=== PATIENT | male | born 1960 | race Caucasian/White ===

== ENCOUNTER 2018-02-07 00:10 | Emergency (ER) | payer BC ==
[2018-02-07 00:16] VITALS: BP 118/64
[2018-02-07] MEDS ORDERED: Lidocaine 1% 20 ML MDV ONE (00:34)
[2018-02-07] MEDS ORDERED: Diphtheria,Pertussis(Acell),Tetanus Vaccine 0.5 ML SDV IM ONE (00:43)
[2018-02-07] MEDS ORDERED: Bacitracin/Neomycin/Polymyxin B Oint 0.9 GM U/D Packet TOP ONE (01:00)
[2018-02-07] MEDS ORDERED: Bacitracin/Neomycin/Polymyxin B Oint 0.9 GM U/D Packet ONE (01:00)
--- NOTE | 2018-02-07 01:02 | EDM.PDOC ---
ED HPI GENERAL MEDICAL PROBLEM - General Chief Complaint: Lower Extremity Injury/Pain Stated Complaint: lac to R foot Time Seen by Provider: 02/07/18 00:57 Source of Information: Reports: Patient History Limitations: Reports: No Limitations - History of Present Illness INITIAL COMMENTS - FREE TEXT/NARRATIVE: Patient is a 57-year-old gentleman who presents to the emergency department this morning with a complaint of laceration to his right foot. Patient states he was mowing the lawn yesterday at 530 p.m. accidentally cut foot on sharp culvert. Denies any other injury. Onset Date: 02/06/18 Onset Time: 17:30 Duration: Hour(s): Location: Reports: Lower Extremity, Right Severity: Mild Improves with: Reports: None Worsens with: Reports: None Context: Reports: Trauma Associated Symptoms: Reports: No Other Symptoms - Related Data Allergies Allergy/AdvReac Type Severity Reaction Status Date / Time codeine Allergy Vomiting Verified 02/07/18 00:13 Home Meds: Home Meds Sertraline HCl [Zoloft] 50 mg PO DAILY 09/16/15 [History] busPIRone HCl [Buspirone HCl] 7.5 mg PO TID 09/16/15 [History] metFORMIN HCl [Metformin HCl ER] 500 mg PO DAILY 03/27/16 [History] Albuterol [Ventolin HFA] 1 - 2 puff INH Q4H PRN 02/07/18 [History] Cephalexin 500 mg PO TID #21 tablet 02/07/18 [Rx] Lisinopril 10 mg PO DAILY 02/07/18 [History] Phenytoin 100 cap PO BID 02/07/18 [History] Phenytoin 200 cap PO 1400 02/07/18 [History] Past Medical History Respiratory History: Reports: COPD Musculoskeletal History: Reports: Back Pain, Chronic, Fracture Neurological History: Reports: Seizure Psychiatric History: Reports: Anxiety, Depression Endocrine/Metabolic History: Reports: Diabetes, Type II - Infectious Disease History Infectious Disease History: Reports: Chicken Pox - Past Surgical History Neurological Surgical History: Reports: None Review of Systems - Review of Systems Review Of Systems: ROS reveals no pertinent complaints other than HPI. Constitutional: Reports: No Symptoms Eyes: Reports: No Symptoms Ears: Reports: No Symptoms Nose: Reports: No Symptoms Mouth/Throat: Reports: No Symptoms Respiratory: Reports: No Symptoms Cardiovascular: Reports: No Symptoms GI/Abdominal: Reports: No Symptoms Genitourinary: Reports: No Symptoms Musculoskeletal: Reports: No Symptoms Skin: Reports: Wound (two Lacerations to right foot) Neurological: Reports: No Symptoms Psychiatric: Reports: No Symptoms ED EXAM, GENERAL - Physical Exam Exam: See Below Exam Limited By: No Limitations General Appearance: Alert, WD/WN, No Apparent Distress Throat/Mouth: Normal Inspection, Normal Oropharynx, No Airway Compromise Respiratory/Chest: No Respiratory Distress Extremities: Other (two. Lacerations to right lateral foot) Neurological: Alert, Oriented, Normal Cognition Psychiatric: Normal Affect, Normal Mood Skin Exam: Warm, Dry, Normal Color, No Rash, Wound/Incision (There is a 2 cm laceration to the dorsal aspect of right foot, and a 3 cm laceration to right lateral foot) ED TRAUMA EXTREMITY PROCEDURES - Laceration/Wound Repair Right Middle Lateral Foot Appearance: Superficial, Mildly Contaminated Distal NVT: Neuro & Vascular Intact, No Tendon Injury Anesthetic Type: Local Local Anesthesia - Lidocaine (Xylocaine): 1% Plain Local Anesthetic Volume: 3cc Skin Prep: Providone-Iodine (Betadine) Closed With: Sutures Suture Size: 3-0 # of Sutures: 7 Suture Type: Nylon, Interrupted Sterile Dressing Applied: Nurse Tetanus Status Addressed: Yes Complications: No Course - Vital Signs Last Recorded V/S: Last Vital Signs Temp 97.9 F 02/07/18 00:13 Pulse 80 02/07/18 00:13 Resp 18 02/07/18 00:13 BP 118/64 02/07/18 00:13 Pulse Ox 93 L 02/07/18 00:13 - Orders/Labs/Meds Orders: Active Orders 24 hr Category Date Time Status Vaccines to be Administered [RC] PER UNIT ROUTINE Care 02/07/18 00:43 Active Meds: Medications Discontinued Medications Generic Name Dose Route Start Last Admin Trade Name Freq PRN Reason Stop Dose Admin Diphtheria/Tetanus/Acell Pertussis 0.5 ml 02/07/18 00:43 02/07/18 00:45 Adacel IM 02/07/18 00:44 0.5 ml .ONCE ONE Administration Lidocaine HCl Confirm 02/07/18 00:34 02/07/18 00:47 Xylocaine 1% Administered 02/07/18 00:35 4 ml Dose Administration 20 ml .ROUTE .STK-MED ONE Lidocaine HCl 5 ml 02/07/18 00:44 Xylocaine-Mpf 1% INFILT 02/07/18 00:45 ONETIME ONE - Re-Assessments/Exams Free Text/Narrative Re-Assessment/Exam: 02/07/18 01:03 Patient afebrile, nontoxic appearing, vital signs stable, tolerated procedure well. Patient given tetanus here and prescription for cephalexin to go. Departure - Departure Time of Disposition: 01:05 Disposition: Home, Self-Care 01 Condition: Good Clinical Impression: Laceration of foot Qualifiers: Encounter type: initial encounter Laterality: right Qualified Code(s): S91.311A - Laceration without foreign body, right foot, initial encounter - Discharge Information Instructions: Laceration Care, Adult, [id number], Stitches, Levon, or Adhesive Wound Closure, [id number] Referrals: Aylin Tellez PA-C [Primary Care Provider] - Additional Instructions: Follow-up at [facility] in 10 days for suture removal. Return to emergency department sooner if symptoms continue or worsen. - My Orders Last 24 Hours: My Active Orders 02/07/18 00:43 Vaccines to be Administered [RC] PER UNIT ROUTINE - Assessment/Plan Last 24 Hours: My Active Orders 02/07/18 00:43 Vaccines to be Administered [RC] PER UNIT ROUTINE Assessment:: Laceration repair right foot Plan: Suture removal in 10 days
== END 2018-02-07 01:18 | disposition home or self-care (01) ==
LOC: KA.ED 00:10
DX: S91.311A Laceration without foreign body, right foot, initial encounter (principal); E11.9 Type 2 diabetes mellitus without complications; F41.9 Anxiety disorder, unspecified; F32.9 Major depressive disorder, single episode, unspecified; J44.9 Chronic obstructive pulmonary disease, unspecified; Z23 Encounter for immunization; Z79.84 Long term (current) use of oral hypoglycemic drugs; Z79.899 Other long term (current) drug therapy; Z88.5 Allergy status to narcotic agent; W26.8XXA Contact with other sharp object(s), not elsewhere classified, initial encounter
CPT/HCPCS: 12002; 90471; 90715; 99283

== ENCOUNTER 2019-06-25 16:40 | Observation (INO) | payer BC ==
[2019-06-25] MEDS ORDERED: Sodium Chloride 0.9% 1,000 ML IV ONE ×2 (16:48→18:01)
--- NOTE | 2019-06-25 16:57 | EDM.PDOC ---
ED HPI GENERAL MEDICAL PROBLEM - General Chief Complaint: General Stated Complaint: BEE STINGS Time Seen by Provider: 06/25/19 16:40 Source of Information: Reports: Patient History Limitations: Reports: No Limitations - History of Present Illness INITIAL COMMENTS - FREE TEXT/NARRATIVE: 59 YO WM with PMH of hypertension, NIDDM, seizure disorder and alcohol use/ abuse who presents to ER with a syncopal episode after bee stings today. 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 states he's been drinking for the last 3 days (beer/tequilla) and when he came in the house he passed out. Upon arrival of ambulance pt was found to have bp 80/50's. Pt denies chest pain, headache, shortness of breath. Pt states he feels nauseated but denies vomiting. Pt denies recent illness, no fever/chills, no cough or shortness of breath. Pt is alert and oriented x 4, GCS-15. Pt reports lightheadedness with standing. Onset: Today Location: Reports: Generalized Severity: Moderate Improves with: Reports: Rest Worsens with: Reports: Movement Associated Symptoms: Reports: Nausea/Vomiting, Syncope, Weakness. Denies: Confusion, Chest Pain, Cough, cough w sputum, Fever/Chills, Headaches, Loss of Appetite, Malaise, Rash, Shortness of Breath - Related Data Allergies Allergy/AdvReac Type Severity Reaction Status Date / Time codeine Allergy Vomiting Verified 06/25/19 17:11 Home Meds: Home Meds Sertraline HCl [Zoloft] 50 mg PO DAILY 09/16/15 [History] busPIRone HCl [Buspirone HCl] 7.5 mg PO TID 09/16/15 [History] metFORMIN HCl [Metformin HCl ER] 250 mg PO DAILY 03/27/16 [History] Albuterol [Ventolin HFA] 1 - 2 puff INH Q4H PRN 02/07/18 [History] Lisinopril 10 mg PO DAILY 02/07/18 [History] Phenytoin 200 cap PO 1400 02/07/18 [History] Sertraline HCl 25 mg PO DAILY 06/25/19 [History] busPIRone HCl [Buspirone HCl] 30 mg PO DAILY 06/25/19 [History] levETIRAcetam [Keppra] 1,000 mg PO BID 06/25/19 [History] Past Medical History Cardiovascular History: Reports: Hypertension Respiratory History: Reports: COPD Musculoskeletal History: Reports: Back Pain, Chronic, Fracture Neurological History: Reports: Seizure Psychiatric History: Reports: Anxiety, Depression, PTSD Endocrine/Metabolic History: Reports: Diabetes, Type II - Infectious Disease History Infectious Disease History: Reports: Chicken Pox - Past Surgical History Neurological Surgical History: Reports: None Social & Family History - Caffeine Use Caffeine Use: Reports: Coffee Other Caffeine Use: Drinks 1 pot of coffee per day ED ROS GENERAL - Review of Systems Review Of Systems: See Below Constitutional: Reports: Weakness HEENT: Reports: No Symptoms. Denies: Vision Change Respiratory: Reports: No Symptoms Cardiovascular: Reports: Blood Pressure Problem, Lightheadedness, Syncope. Denies: Chest Pain, Dyspnea on Exertion Endocrine: Reports: No Symptoms GI/Abdominal: Reports: No Symptoms : Reports: No Symptoms Musculoskeletal: Reports: No Symptoms Neurological: Reports: Dizziness, Syncope, Weakness. Denies: Confusion, Headache, Numbness, Paresthesia, Tingling, Tremors, Trouble Speaking, Difficulty Walking, Change in Speech, Gait Disturbance Psychiatric: Reports: No Symptoms Hematologic/Lymphatic: Reports: No Symptoms Immunologic: Reports: No Symptoms ED EXAM, GENERAL - Physical Exam Exam: See Below Exam Limited By: No Limitations General Appearance: Alert, WD/WN, No Apparent Distress Eye Exam: Bilateral Eye: EOMI, PERRL Head: Normocephalic, Facial Swelling. No: Atraumatic, Facial Tenderness, Sinus Tenderness Neck: Normal Inspection, Supple, Non-Tender, Full Range of Motion Respiratory/Chest: No Respiratory Distress, Lungs Clear, Normal Breath Sounds, No Accessory Muscle Use, Chest Non-Tender Cardiovascular: Normal Peripheral Pulses, Regular Rate, Rhythm, No Edema, No Gallop, No JVD, No Murmur, No Rub GI/Abdominal: Normal Bowel Sounds, Soft, Non-Tender, No Organomegaly, No Distention, No Abnormal Bruit, No Mass Back Exam: Normal Inspection, Full Range of Motion, NT Extremities: Normal Inspection, Normal Range of Motion, Non-Tender, Normal Capillary Refill, No Pedal Edema Neurological: Alert, Oriented, CN II-XII Intact, Normal Cognition, Normal Gait, Normal Reflexes, No Motor/Sensory Deficits Psychiatric: Normal Affect, Normal Mood Skin Exam: Warm, Dry, Intact, Normal Color, No Rash Lymphatic: No Adenopathy EKG INTERPRETATION EKG Date: 06/25/19 Time: 16:53 Rhythm: NSR Rate (Beats/Min): 81 [place]: Normal P-Wave: Present QRS: Normal ST-T: Normal QT: Normal Comparison: NA - No Prior EKG Course - Orders/Labs/Meds Orders: Active Orders 24 hr Category Date Time Status Cardiac Monitoring [RC] . DIRECTED Care 06/25/19 16:46 Ordered EKG Documentation Completion [RC] ASDIRECTED Care 06/25/19 16:47 Ordered Peripheral IV Care [RC] . DIRECTED Care 06/25/19 16:46 Ordered Chest 1V Frontal [CR] Stat Exams 06/25/19 16:46 Ordered Head wo Cont [CT] Stat Exams 06/25/19 16:53 Ordered CK W CKMB [CHEM] Stat Lab 06/25/19 16:46 Ordered COMPREHENSIVE METABOLIC PN,CMP [CHEM] Stat Lab 06/25/19 16:46 Ordered ETHANOL BLOOD MEDICAL [CHEM] Stat Lab 06/25/19 16:46 Ordered TROPONIN I [CHEM] Stat Lab 06/25/19 16:46 Ordered Sodium Chloride 0.9% @ 999 MLS/HR (1000ml) Med 06/25/19 16:48 Ordered Sodium Chloride 0.9% [Normal Saline] 1,000 ml IV .BOLUS EKG 12 Lead [EK] Routine Ther 06/25/19 16:46 Ordered Medication Orders Sodium Chloride (Normal Saline) 1,000 mls @ 999 mls/hr IV .BOLUS ONE Stop: 06/25/19 17:48 Labs: Laboratory Tests 06/25/19 Range/Units 16:45 WBC 8.97 (5.00-10.00) 10^3/uL RBC 3.86 L (4.50-6.00) 10^6/uL Hgb 13.4 (13.0-17.0) g/dL Hct 39.1 L (40.0-52.0) % MCV 101.3 H D (82.0-92.0) fL MCH 34.7 H (27.0-31.0) pg MCHC 34.3 (32.0-36.0) g/dL RDW 12.4 (11.5-14.5) % Plt Count 345 (150-400) 10^3/uL MPV 9.1 (7.4-10.4) fL Immature Gran % (Auto) 0.9 (0.0-5.0) % Neut % (Auto) 71.8 H (50.0-70.0) % Lymph % (Auto) 20.6 (20.0-40.0) % [place] % (Auto) 5.5 (2.0-8.0) % Eos % (Auto) 1.1 (1.0-3.0) % Baso % (Auto) 0.1 (0.0-1.0) % Immature Gran # (Auto) 0.08 (0.00-0.50) 10^3/uL Neut # (Auto) 6.44 (2.50-7.00) 10^3/uL Lymph # (Auto) 1.85 (1.00-4.00) 10^3/uL [place] # (Auto) 0.49 (0.10-0.80) 10^3/uL Eos # (Auto) 0.10 (0.10-0.30) 10^3/uL Baso # (Auto) 0.01 (0.00-0.10) 10^3/uL Meds: Medications Generic Name Dose Route Start Last Admin Trade Name Freq PRN Reason Stop Dose Admin Sodium Chloride 1,000 mls @ 999 mls/hr 06/25/19 16:48 Normal Saline IV 06/25/19 17:48 .BOLUS ONE - Radiology Interpretation Free Text/Narrative:: CXR- NAD CT Head- left orbital fracture without EOM entrapment Departure - Departure Time of Disposition: 18:00 Disposition: Refer to Observation Condition: Fair Clinical Impression: Orthostatic hypotension, Elevated troponin I level Syncope Qualifiers: Encounter type: initial encounter Orbital fracture Qualifiers: Encounter type: initial encounter Fracture type: closed Qualified Code(s): S02.85XA - Fracture of orbit, unspecified, initial encounter for closed fracture - Discharge Information Referrals: Aylin Tellez PA-C [Primary Care Provider] - Forms: ED Department Discharge - My Orders Last 24 Hours: My Active Orders 06/25/19 16:46 Cardiac Monitoring [RC] . DIRECTED Peripheral IV Care [RC] . DIRECTED Chest 1V Frontal [CR] Stat CK W CKMB [CHEM] Stat COMPREHENSIVE METABOLIC PN,CMP [CHEM] Stat ETHANOL BLOOD MEDICAL [CHEM] Stat TROPONIN I [CHEM] Stat EKG 12 Lead [EK] Routine 06/25/19 16:47 EKG Documentation Completion [RC] ASDIRECTED 06/25/19 16:48 Sodium Chloride 0.9% @ 999 MLS/HR (1000ml) Sodium Chloride 0.9% [Normal Saline] 1,000 ml IV .BOLUS 06/25/19 16:53 Head wo Cont [CT] Stat - Assessment/Plan Last 24 Hours: My Active Orders 06/25/19 16:46 Cardiac Monitoring [RC] . DIRECTED Peripheral IV Care [RC] . DIRECTED Chest 1V Frontal [CR] Stat CK W CKMB [CHEM] Stat COMPREHENSIVE METABOLIC PN,CMP [CHEM] Stat ETHANOL BLOOD MEDICAL [CHEM] Stat TROPONIN I [CHEM] Stat EKG 12 Lead [EK] Routine 06/25/19 16:47 EKG Documentation Completion [RC] ASDIRECTED 06/25/19 16:48 Sodium Chloride 0.9% @ 999 MLS/HR (1000ml) Sodium Chloride 0.9% [Normal Saline] 1,000 ml IV .BOLUS 06/25/19 16:53 Head wo Cont [CT] Stat Assessment:: 1. Orthostatic hypotension 2. dehydration 3. ETOH intoxication 4. elevated Trop I 5. left orbital wall fracture 6. syncope Plan: 1. Admit to [facility] 2. IVF hydration 3. serial trop I 4. supportive care 5. ENT/Plastics/Maxillofacial consult as outpatient for orbital fracture
[2019-06-25 17:21] LABS: ANION GAP 25.5 mmol/L (5-15); CHLORIDE,CL 104 mmol/L (98-115); SODIUM,NA 144 mmol/L (136-145)
--- NOTE | 2019-06-25 17:31 | CR ---
[id number] RAD/RAD Chest PA or AP 1V EXAM: FRONTAL CHEST INDICATION: Hypotension. COMPARISON: February 22, 2009 radiograph. DISCUSSION: There is an irregular predominantly linear right midlung opacity thought to likely represent scarring at the site of a previous mass. Underlying chronic obstructive pulmonary disease. Normal heart size. IMPRESSION: 1. Right midlung parenchymal scarring. No acute infiltrates are identified. Damon Dorsey MD 06/25/19 [id number] Thank you for allowing us to participate in the care of your patient.
--- NOTE | 2019-06-25 17:37 | CT ---
[id number] CT/CT Head WO IV EXAM: NONCONTRAST HEAD CT INDICATION: SYNCOPE. COMPARISON: September 16, 2015. DISCUSSION: There is mild generalized atrophy. Mild multifocal white matter hypoattenuation is nonspecific, but generally ascribed to chronic small vessel ischemia. No mass effect or midline shift. No acute hemorrhage or extra-axial fluid collection. No acute territorial infarct is identified. Partially characterized acute left inferior orbital wall blowout fracture and essentially nondisplaced lateral left orbital wall fracture. Chronic fat-containing left medial orbital wall blowout fracture. There is associated soft tissue gas within and surrounding the orbit. IMPRESSION: 1. Left inferior orbital wall blowout fracture and nondisplaced lateral left orbital wall fracture. There is associated soft tissue gas within the left face. Damon Dorsey MD 06/25/19 [id number] Thank you for allowing us to participate in the care of your patient.
[2019-06-25] MEDS ORDERED: Thiamine 100 MG Tab PO ONE (19:08)
[2019-06-25] MEDS ORDERED: Acetaminophen 325 MG Tab PO PRN (19:38)
[2019-06-25] MEDS ORDERED: Ondansetron 4 MG/2 ML SDV IVPUSH PRN (19:47)
[2019-06-25] MEDS ORDERED: LORazepam 2 MG/ML SDV IVPUSH PRN (20:10)
[2019-06-25] MEDS: Sodium Chloride 0.9% 1,000 ML IV SCH (20:10)
[2019-06-25] MEDS: Nicotine 21 MG/24 Hr Patch TRDERM SCH (20:11)
[2019-06-25] MEDS ORDERED: Phenytoin 100 MG Cap.ER PO SCH (21:00)
--- NOTE | 2019-06-25 21:44 | PCM.HP.2 ---
H&P History of Present Illness - General Date of Service: 06/25/19 Admit Problem/Dx: Admission Diagnosis/Problem Admission Diagnosis/Problem Syncope Source of Information: Patient, Family, Old Records, Provider History Limitations: Reports: No Limitations, Intoxication (answers questions appropriately). Denies: Uncooperative left eye Pain Score (Numeric/FACES): 4 - Related Data Allergies/Adverse Reactions: Allergies Allergy/AdvReac Type Severity Reaction Status Date / Time codeine Allergy Vomiting Verified 06/25/19 17:11 Home Medications: Home Meds Sertraline HCl [Zoloft] 50 mg PO DAILY 09/16/15 [History] busPIRone HCl [Buspirone HCl] 20 mg PO DAILY 09/16/15 [History] metFORMIN HCl [Metformin HCl ER] 250 mg PO DAILY 03/27/16 [History] Albuterol [Ventolin HFA] 1 - 2 puff INH Q4H PRN 02/07/18 [History] Lisinopril 10 mg PO DAILY 02/07/18 [History] Phenytoin 300 cap PO BID 02/07/18 [History] Sertraline HCl 25 mg PO DAILY 06/25/19 [History] busPIRone HCl [Buspirone HCl] 30 mg PO DAILY 06/25/19 [History] levETIRAcetam [Keppra] 1,000 mg PO BID 06/25/19 [History] Past Medical History Cardiovascular History: Reports: Hypertension Respiratory History: Reports: COPD Musculoskeletal History: Reports: Back Pain, Chronic, Fracture Neurological History: Reports: Concussion, Head Trauma, Seizure Psychiatric History: Reports: Anxiety, Depression, PTSD Endocrine/Metabolic History: Reports: Diabetes, Type II - Infectious Disease History Infectious Disease History: Reports: Chicken Pox - Past Surgical History Neurological Surgical History: Reports: None Social & Family History - Family History Cardiac: Reports: CAD (father) Endocrine/Metabolic: Reports: Diabetes, type II (mother) Oncologic: Reports: Prostate (father) - Tobacco Use Smoking Status *Q: Current Every Day Smoker Years of Tobacco use: 40 Packs/Tins Daily: 2 - Caffeine Use Caffeine Use: Reports: Coffee Other Caffeine Use: Drinks 1 pot of coffee per day - Recreational Drug Use Recreational Drug Use: Yes Recreational Drug Type: Reports: Marijuana/Hashish H&P Review of Systems - Review of Systems: Review Of Systems: See Below General: Denies: Fever, Chills HEENT: Reports: Headaches Pulmonary: Denies: Shortness of Breath, Cough Cardiovascular: Reports: Lightheadedness. Denies: Chest Pain, Palpitations, Dyspnea on Exertion Gastrointestinal: Reports: Decreased Appetite, Nausea, Vomiting. Denies: Abdominal Pain, Constipation, Diarrhea Genitourinary: Reports: No Symptoms Skin: Reports: Bruising (to left side of face), Wound (left orbit) Psychiatric: Denies: Confusion, Agitation Neurological: Reports: Dizziness, Headache. Denies: Confusion Exam - Exam Exam: See Below - Vital Signs Vital Signs: Last Vital Signs Temp 98 F 06/25/19 18:15 Pulse 88 06/25/19 18:15 Resp 19 06/25/19 18:15 BP 90/63 06/25/19 18:15 Pulse Ox 97 06/25/19 19:39 Orthostatic Blood Pressure [ 75/42 Standing] Orthostatic Blood Pressure [ 93/45 Sitting] Orthostatic Blood Pressure [ 98/24 Supine] Weight: 164 lb 8 oz - Exam Quality Assessment: No: Supplemental Oxygen, DVT Prophylaxis, Skin Breakdown General: Alert, Oriented (x3), Cooperative HEENT: EOMI, Hearing Intact, Nares Patent, Other (Large ecchymotic area over left orbit with moderate to severe edema; mild deviation of nose to the right with bleeding of left nare), PERRLA Lungs: Normal Respiratory Effort, Decreased Breath Sounds (to bilateral lower lobes), Wheezing (expiratory wheezes to BUL) Cardiovascular: Regular Rate, Regular Rhythm, Normal S1, Normal S2 Skin: Warm, Dry, Intact, Ecchymosis (see above), Wound (see above) Neurological: Strength Equal Bilateral (to BUE & BLE), Normal Gait, Normal Speech, Sensation Intact Neuro Extensive - Mental Status: Alert, Oriented x3, Memory Intact Psychiatric: Alert, Normal Affect, Normal Mood - Patient Data Lab Results Last 24 hrs: Laboratory Results - last 24 hr 06/25/19 06/25/19 06/25/19 Range/Units 16:45 16:45 16:45 WBC 8.97 (5.00-10.00) 10^3/uL RBC 3.86 L (4.50-6.00) 10^6/uL Hgb 13.4 (13.0-17.0) g/dL Hct 39.1 L (40.0-52.0) % MCV 101.3 H D (82.0-92.0) fL MCH 34.7 H (27.0-31.0) pg MCHC 34.3 (32.0-36.0) g/dL RDW 12.4 (11.5-14.5) % Plt Count 345 (150-400) 10^3/uL MPV 9.1 (7.4-10.4) fL Immature Gran % (Auto) 0.9 (0.0-5.0) % Neut % (Auto) 71.8 H (50.0-70.0) % Lymph % (Auto) 20.6 (20.0-40.0) % [place] % (Auto) 5.5 (2.0-8.0) % Eos % (Auto) 1.1 (1.0-3.0) % Baso % (Auto) 0.1 (0.0-1.0) % Immature Gran # (Auto) 0.08 (0.00-0.50) 10^3/uL Neut # (Auto) 6.44 (2.50-7.00) 10^3/uL Lymph # (Auto) 1.85 (1.00-4.00) 10^3/uL [place] # (Auto) 0.49 (0.10-0.80) 10^3/uL Eos # (Auto) 0.10 (0.10-0.30) 10^3/uL Baso # (Auto) 0.01 (0.00-0.10) 10^3/uL Sodium 144 (136-145) mmol/L Potassium 3.5 (3.3-5.3) mmol/L Chloride 104 (98-115) mmol/L Carbon Dioxide 18.0 L D (21.0-32.0) mmol/L Anion Gap 25.5 H (5-15) mmol/L BUN 14 (6-25) mg/dL Creatinine 0.96 (0.51-1.17) mg/dL Est Cr Clr Drug Dosing 84.90 mL/min Estimated GFR (MDRD) > 60 mL/min Glucose 99 (75 - 99) mg/dL Calcium 8.9 (8.7-10.3) mg/dL Magnesium 1.8 (1.8-2.4) mg/dL Total Bilirubin 0.2 (0.2-1.0) mg/dL AST 25 (15-37) U/L ALT 22 (12-78) U/L Alkaline Phosphatase 73 (46-116) IU/L Creatine Kinase 109 (26-276) U/L CK-MB (CK-2) 1.90 (0.00-4.30) ng/mL Troponin I 0.10 H* (0.00-0.070) ng/mL Total Protein 6.4 (6.4-8.2) g/dL Albumin 3.69 (3.00-4.80) g/dL Ethyl Alcohol 193 H* (NONE DETECTED) mg/dL 06/25/19 Range/Units 20:02 WBC (5.00-10.00) 10^3/uL RBC (4.50-6.00) 10^6/uL Hgb (13.0-17.0) g/dL Hct (40.0-52.0) % MCV (82.0-92.0) fL MCH (27.0-31.0) pg MCHC (32.0-36.0) g/dL RDW (11.5-14.5) % Plt Count (150-400) 10^3/uL MPV (7.4-10.4) fL Immature Gran % (Auto) (0.0-5.0) % Neut % (Auto) (50.0-70.0) % Lymph % (Auto) (20.0-40.0) % [place] % (Auto) (2.0-8.0) % Eos % (Auto) (1.0-3.0) % Baso % (Auto) (0.0-1.0) % Immature Gran # (Auto) (0.00-0.50) 10^3/uL Neut # (Auto) (2.50-7.00) 10^3/uL Lymph # (Auto) (1.00-4.00) 10^3/uL [place] # (Auto) (0.10-0.80) 10^3/uL Eos # (Auto) (0.10-0.30) 10^3/uL Baso # (Auto) (0.00-0.10) 10^3/uL Sodium (136-145) mmol/L Potassium (3.3-5.3) mmol/L Chloride (98-115) mmol/L Carbon Dioxide (21.0-32.0) mmol/L Anion Gap (5-15) mmol/L BUN (6-25) mg/dL Creatinine (0.51-1.17) mg/dL Est Cr Clr Drug Dosing mL/min Estimated GFR (MDRD) mL/min Glucose (75 - 99) mg/dL Calcium (8.7-10.3) mg/dL Magnesium (1.8-2.4) mg/dL Total Bilirubin (0.2-1.0) mg/dL AST (15-37) U/L ALT (12-78) U/L Alkaline Phosphatase (46-116) IU/L Creatine Kinase (26-276) U/L CK-MB (CK-2) (0.00-4.30) ng/mL Troponin I 0.11 H* (0.00-0.070) ng/mL Total Protein (6.4-8.2) g/dL Albumin (3.00-4.80) g/dL Ethyl Alcohol (NONE DETECTED) mg/dL Result Diagrams: 06/25/19 16:45 06/25/19 16:45 EKG INTERPRETATION EKG Date: 06/25/19 Time: 16:53 Rhythm: NSR Rate (Beats/Min): 81 [place]: Normal P-Wave: Present QRS: Normal ST-T: Normal QT: Normal Comparison: Change From Previous EKG (no sinus arrythmia or PVCs as noted on EKG 2015) Problem List Initiated/Reviewed/Updated: Yes Orders Last 24hrs: Active Orders 24 hr Category Date Time Status Patient Status Manage Transfer [TRANSFER] Routine ADT 06/25/19 18:02 Ordered Patient Status [ADT] Routine ADT 06/25/19 19:39 Active Cardiac Monitoring [RC] 0300,0700,1100,1500,1900,2300 Care 06/25/19 16:46 Active Intake and Output [RC] 1400,2200,0600 Care 06/25/19 19:40 Active Orthostatic Vital Signs [RC] ASDIRECTED Care 06/25/19 17:47 Active Oxygen Therapy [RC] PRN Care 06/25/19 19:39 Active Up With Assistance [RC] ASDIRECTED Care 06/25/19 19:38 Active VTE/DVT Education [RC] PER UNIT ROUTINE Care 06/25/19 19:39 Active Vital Signs [RC] 0300,0700,1100,1500,1900,2300 Care 06/25/19 19:39 Active Consult to Case Management/Roller Skater [CONS] Cons 06/25/19 19:48 Active Routine Regular Diet [DIET] Diet 06/25/19 Dinner Active BASIC METABOLIC PANEL,BMP [CHEM] AM Lab 06/26/19 05:11 Ordered CBC WITH AUTO DIFF [HEME] AM Lab 06/26/19 05:11 Ordered TROPONIN I [CHEM] AM Lab 06/26/19 05:11 Ordered TROPONIN I [CHEM] Routine Lab 06/26/19 02:00 Ordered Acetaminophen [Tylenol] Med 06/25/19 19:38 Active 650 mg PO Q4H PRN Albuterol [Ventolin HFA] Med 06/25/19 19:48 Active 0 gm INH Q4H PRN LORazepam [Ativan] Med 06/25/19 20:10 Active 5 mg IVPUSH ONETIME PRN Nicotine [Habitrol] Med 06/25/19 19:45 Active 21 mg TRDERM DAILY Ondansetron [Zofran] Med 06/25/19 19:47 Active 4 mg IVPUSH Q6H PRN Phenytoin Med 06/25/19 21:00 Hold 300 mg PO BID Sodium Chloride 0.9% [Normal Saline] 1,000 ml Med 06/25/19 19:45 Active IV ASDIRECTED levETIRAcetam [Keppra] Med 06/25/19 22:00 Active 1,000 mg PO BID@1000,2200 Seizure Precautions [OM.PC] Routine Oth 06/25/19 19:07 Ordered Resuscitation Status Routine Resus Stat 06/25/19 19:38 Ordered EKG 12 Lead [EK] Routine Ther 06/25/19 16:46 Ordered Medication Orders Acetaminophen (Tylenol) 650 mg PO Q4H PRN PRN Reason: Pain (Mild 1-3)/fever Albuterol (Ventolin Hfa) 0 gm INH Q4H PRN PRN Reason: Shortness of Breath Sodium Chloride (Normal Saline) 1,000 mls @ 100 mls/hr IV ASDIRECTED [facility] Last Admin: 06/25/19 20:10 Dose: 100 mls/hr Levetiracetam (Keppra) 1,000 mg PO BID@1000,2200 RONI Lorazepam (Ativan) 5 mg IVPUSH ONETIME PRN PRN Reason: Seizures Nicotine (Habitrol) 21 mg TRDERM DAILY [facility] Last Admin: 06/25/19 20:11 Dose: 21 mg Ondansetron HCl (Zofran) 4 mg IVPUSH Q6H PRN PRN Reason: Nausea/Vomiting Last Admin: 06/25/19 21:17 Dose: 4 mg Phenytoin Sodium (Phenytoin) 300 mg PO BID [facility] Assessment/Plan Comment:: HPI: This is a 59 yo male who presented to the ED via ambulance after a syncopal episode at home. 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 They proceeded to go in the house and she noticed him leaning against the wall and then passed out and fell face forwards on the hard floor. She states he was in a pool of blood and that he had about 30 seconds of a seizure. Last true seizure was 2017. Has been on a 3 day binge of beer and tequila. Has a history of alcohol abuse for which he has gone to treatment twice with the last time in 2011. Pertinent ED work-up: WBC 8.9 with left shift Hgb 13.4 Na 144 K 3.5 Hepatic function wnl Troponin 0.10 ETOH 193 CXR-right midlung parenchymal scarring, no acute infiltrates CT head-no acute hemorrhage, left inferior orbital wall blowout fracture and nondisplaced lateral left orbital wall fracture with associated soft tissue gas within the left face EKG-NSR without ST segment changes. Orthostatic BPs positive Primary Assessment/Plan: Syncopal episode. Telemetry. Most likely related to ETOH intoxication and dehydration. Orthostatic hypotension. Dehydration. Continue IV fluids of NS at 100 mL/hr. BMP in AM. ETOH intoxication with history of alcohol dependence. Social Service consult placed. Thiamine 100 mg po x 1. Mg 1.8. Zofran IV PRN for nausea. NSTEMI. Repeat troponin 0.11. Serial troponins. Left orbital wall fracture & lateral left orbital wall fracture. Consulted with Dr. Gayle, population geneticist ENT at [facility] regarding patient. Recommended keflex for infection prophylaxis and urgent referral to ENT and ophthalmology. CBC in AM. IV rocephin 1 gm given now d/t vomiting. Bee sting of face. Unable to visualize sting site, however could be complicated by facial fractures and edema. Secondary Assessment/Plan: HTN, essential. Hold lisinopril. T2DM. Hold metformin. Depression, recurrent. Re-evaluate doses of zoloft and buspar in the AM. Anxiety. Seizure disorder. Continue keppra and phenytoin. Lorazepam PRN order given if seizures occur. On seizure precautions. Follows with neurology. History of cannabis abuse. Tobacco abuse. Nicotine patch daily. DVT prophylaxis. None at this time. Risk of bleeding high. Overall plan: Continue IV fluids overnight. One dose of IV rocephin for facial fractures. Outpatient referrals to ENT and ophthalmology placed in Epic Chart. Work excuse provided with return to work date of 06/27/19. Code Status: Full Code - Mortality Measure Prognosis:: Good
[2019-06-25] MEDS ORDERED: cefTRIAXone 1 GM Vial IVPUSH SCH (21:45)
[2019-06-25] MEDS: levETIRAcetam 500 MG Tab PO SCH (22:24)
[2019-06-26] MEDS: Albuterol 8 GM Inhaler INH PRN ×2 (01:16→06:27)
[2019-06-26] MEDS: Sodium Chloride 0.9% 1,000 ML IV SCH (06:28)
[2019-06-26 06:48] VITALS: BP 105/62; PULSE 86
[2019-06-26 08:07] LABS: ANION GAP 23.4 mmol/L (5-15); CHLORIDE,CL 101 mmol/L (98-115); SODIUM,NA 140 mmol/L (136-145)
[2019-06-26] MEDS: Nicotine 21 MG/24 Hr Patch TRDERM SCH (08:42)
[2019-06-26] MEDS ORDERED: Sertraline 50 MG Tab PO SCH ×2 (09:00)
[2019-06-26] MEDS ORDERED: busPIRone 10 MG Tab PO SCH ×2 (09:00)
--- NOTE | 2019-06-26 10:04 | PCM.DCSUM1 ---
Discharge Summary - Discharge Data Discharge Date: 06/26/19 Discharge Disposition: Home, Self-Care 01 Condition: Good - Referral to Home Health Primary Care Physician: Aylin Tellez PA-C - Patient Summary/Data Consults: Consultations 06/25/19 19:48 Consult to Case Management/Senior Resident Care Director [CONS] Routine - Patient Instructions Diet: Regular Diet as Tolerated Activity: As Tolerated, No Strenuous Activities, Rest and Relax Today Driving: Do Not Drive Showering/Bathing: May Shower Notify Provider of: Fever (101 degrees F or higher), Increased Pain, Swelling and Redness (increased from left eye), Drainage (from left eye wound) Other/Special Instructions: Keep eye wound clean and dry. You have been referred to [facility] in [place]. Their offices will contact you to make an appointment. If you do not hear from them in 24-48 hours please call the [facility] at [phone]. I have taken you off of work all week with a return to work date of 07/03/19, however this is pending specialty consultation. - Discharge Plan *PRESCRIPTION DRUG MONITORING PROGRAM REVIEWED*: Not Applicable *COPY OF PRESCRIPTION DRUG MONITORING REPORT IN PATIENT MICHELLE: Not Applicable Prescriptions/Med Rec: cephALEXin [Keflex] 500 mg PO Q12H #14 cap Home Medications: Home Meds metFORMIN HCl [Metformin ER Osmotic] 250 mg PO DAILY 03/27/16 [History] Albuterol [Ventolin HFA] 1 - 2 puff INH Q4H PRN 02/07/18 [History] Phenytoin 300 cap PO BID 02/07/18 [History] levETIRAcetam [Keppra] 1,000 mg PO BID 06/25/19 [History] Sertraline HCl [Zoloft] 150 mg PO DAILY #0 06/26/19 [Rx] busPIRone HCl [Buspirone HCl] 15 mg PO BID #0 06/26/19 [Rx] busPIRone HCl [Buspirone HCl] 20 mg PO DAILY #0 06/26/19 [Rx] cephALEXin [Keflex] 500 mg PO Q12H #14 cap 06/26/19 [Rx] Referrals: Aylin Tellez PA-C [Primary Care Provider] - 06/28/19 - Discharge Summary/Plan Comment DC Time >30 min.: Yes Discharge Summary/Plan Comment: Date of admission: 06/25/19 Date of discharge: 06/26/19 Admitting diagnosis: Primary: Syncopal episode, Orthostatic hypotension, Dehydration, ETOH intoxication, Elevated troponin, Left orbital wall fracture & left lateral orbital wall fracture, Recent bee stings of face/head Secondary: Essential HTN, T2DM, Recurrent depression, Anxiety, Seizure disorder, History of cannabis use, Tobacco abuse Final diagnosis: Primary: Syncopal episode related to dehydration/ETOH intoxication, resolved ; Orthostatic hypotension, stable; Dehydration, resolved; ETOH intoxication, resolving; Elevated troponin, non-cardiac source, resolving; Left orbital wall fracture & left lateral orbital wall fracture, stable; Recent bee stings of face /head, resolved. Secondary: Essential HTN, T2DM, Recurrent depression, Anxiety, Seizure disorder, History of cannabis use, Tobacco abuse Procedures performed: None Brief History: This is a 59 yo male who presented to the ED via ambulance after a syncopal episode at home. 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 They proceeded to go in the house and she noticed him leaning against the wall and then passed out and fell face forwards on the hard floor. She states he was in a pool of blood and that he had about 30 seconds of a seizure. Last true seizure was 2017. Has been on a 3 day binge of beer and tequila. Has a history of alcohol abuse for which he has gone to treatment twice with the last time in 2011. Pertinent ED work-up: WBC 8.9 with left shift Hgb 13.4 Na 144 K 3.5 Hepatic function wnl Troponin 0.10 ETOH 193 CXR-right midlung parenchymal scarring, no acute infiltrates CT head-no acute hemorrhage, left inferior orbital wall blowout fracture and nondisplaced lateral left orbital wall fracture with associated soft tissue gas within the left face EKG-NSR without ST segment changes. Orthostatic BPs positive Hospital Course: The patient's hospital course progressed as expected. He was given continuous IVFs with improvement in blood pressure. His blood pressure medication was held/discontinued. He was on seizure precautions. Monitored with telemetry. Serial troponins as follows 0.10, 0.11, 0.07, 0.08; however the last troponin was ordered unintentionally and patient is without symptoms. His electrolytes remained normal. Consulted with ENT regarding facial fractures for which he was given a 1 time dose of IV rocephin (d/t vomiting) and set up as an urgent outpatient referral with ENT and ophthalmology. He was given a nicotine patch while hospitalized. No withdrawal symptoms present and no seizures. Labs on discharge: Na 140 K 4.4 Creatinine 0.90 New medications at discharge: -Keflex 500 mg po BID x 7 days Changes to home medications on discharge: -Buspar 20 mg po AM, 15 mg po at noon, 15 mg po in the evening -Discontinue lisinopril. Regular home medications on discharge: -Sertraline 150 mg po daily -Keppra 1000 mg po BID -Albuterol HFA 1-2 puffs inh q4h PRN -Phenytoin 300 mg po BID -Metformin ER 250 mg po daily Condition, Treatment, & Final Disposition: The patient is in stable condition at the time of discharge. He will be discharged home with his . 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 Outpatient ENT and ophthalmology appointments pending. Considerations at follow- up would be determining need for restarting lisinopril. Discussed alcohol treatment and smoking cessation with patient for which he declined any help with at this time. - General Info Date of Service: 06/26/19 Functional Status: Reports: Tolerating Diet, Ambulating, Urinating. Denies: New Symptoms - Review of Systems General: Denies: Fever, Weakness, Fatigue, Chills HEENT: Reports: Eye Pain (left eye), Visual Changes (left eye). Denies: Headaches Pulmonary: Reports: Shortness of Breath (chronic), Cough (chronic). Denies: Sputum Cardiovascular: Denies: Chest Pain, Palpitations, Lightheadedness Gastrointestinal: Denies: Abdominal Pain, Diarrhea, Nausea, Vomiting Genitourinary: Reports: No Symptoms Neurological: Denies: Confusion, Dizziness, Headache Psychiatric: Reports: No Symptoms - Patient Data Vitals - Most Recent: Last Vital Signs Temp 96.7 F 06/26/19 06:46 Pulse 86 06/26/19 06:46 Resp 18 06/26/19 06:46 BP 105/62 06/26/19 06:46 Pulse Ox 96 11/18/19 06:46 Orthostatic Blood Pressure [ 75/42 Standing] Orthostatic Blood Pressure [ 93/45 Sitting] Orthostatic Blood Pressure [ 98/24 Supine] Weight - Most Recent: 164 lb 8 oz I&O - Last 24 hours: Intake & Output 06/25/19 06/26/19 06/26/19 22:59 06:59 14:59 Intake Total 1050 1965 Output Total 3 775 Balance 1047 1190 Lab Results - Last 24 hrs: Laboratory Results - last 24 hr 06/25/19 06/25/19 06/25/19 Range/Units 16:45 16:45 16:45 WBC 8.97 (5.00-10.00) 10^3/uL RBC 3.86 L (4.50-6.00) 10^6/uL Hgb 13.4 (13.0-17.0) g/dL Hct 39.1 L (40.0-52.0) % MCV 101.3 H D (82.0-92.0) fL MCH 34.7 H (27.0-31.0) pg MCHC 34.3 (32.0-36.0) g/dL RDW 12.4 (11.5-14.5) % Plt Count 345 (150-400) 10^3/uL MPV 9.1 (7.4-10.4) fL Immature Gran % (Auto) 0.9 (0.0-5.0) % Neut % (Auto) 71.8 H (50.0-70.0) % Lymph % (Auto) 20.6 (20.0-40.0) % Bleckley % (Auto) 5.5 (2.0-8.0) % Eos % (Auto) 1.1 (1.0-3.0) % Baso % (Auto) 0.1 (0.0-1.0) % Immature Gran # (Auto) 0.08 (0.00-0.50) 10^3/uL Neut # (Auto) 6.44 (2.50-7.00) 10^3/uL Lymph # (Auto) 1.85 (1.00-4.00) 10^3/uL Bleckley # (Auto) 0.49 (0.10-0.80) 10^3/uL Eos # (Auto) 0.10 (0.10-0.30) 10^3/uL Baso # (Auto) 0.01 (0.00-0.10) 10^3/uL Sodium 144 (136-145) mmol/L Potassium 3.5 (3.3-5.3) mmol/L Chloride 104 (98-115) mmol/L Carbon Dioxide 18.0 L D (21.0-32.0) mmol/L Anion Gap 25.5 H (5-15) mmol/L BUN 14 (6-25) mg/dL Creatinine 0.96 (0.51-1.17) mg/dL Est Cr Clr Drug Dosing 84.90 mL/min Estimated GFR (MDRD) > 60 mL/min Glucose 99 (75 - 99) mg/dL Calcium 8.9 (8.7-10.3) mg/dL Magnesium 1.8 (1.8-2.4) mg/dL Total Bilirubin 0.2 (0.2-1.0) mg/dL AST 25 (15-37) U/L ALT 22 (12-78) U/L Alkaline Phosphatase 73 (46-116) IU/L Creatine Kinase 109 (26-276) U/L CK-MB (CK-2) 1.90 (0.00-4.30) ng/mL Troponin I 0.10 H* (0.00-0.070) ng/mL Total Protein 6.4 (6.4-8.2) g/dL Albumin 3.69 (3.00-4.80) g/dL Ethyl Alcohol 193 H* (NONE DETECTED) mg/dL 06/25/19 06/26/19 06/26/19 Range/Units 20:02 03:30 07:25 WBC (5.00-10.00) 10^3/uL RBC (4.50-6.00) 10^6/uL Hgb (13.0-17.0) g/dL Hct (40.0-52.0) % MCV (82.0-92.0) fL MCH (27.0-31.0) pg MCHC (32.0-36.0) g/dL RDW (11.5-14.5) % Plt Count (150-400) 10^3/uL MPV (7.4-10.4) fL Immature Gran % (Auto) (0.0-5.0) % Neut % (Auto) (50.0-70.0) % Lymph % (Auto) (20.0-40.0) % Bleckley % (Auto) (2.0-8.0) % Eos % (Auto) (1.0-3.0) % Baso % (Auto) (0.0-1.0) % Immature Gran # (Auto) (0.00-0.50) 10^3/uL Neut # (Auto) (2.50-7.00) 10^3/uL Lymph # (Auto) (1.00-4.00) 10^3/uL Bleckley # (Auto) (0.10-0.80) 10^3/uL Eos # (Auto) (0.10-0.30) 10^3/uL Baso # (Auto) (0.00-0.10) 10^3/uL Sodium 140 (136-145) mmol/L Potassium 4.4 (3.3-5.3) mmol/L Chloride 101 (98-115) mmol/L Carbon Dioxide 20.0 L (21.0-32.0) mmol/L Anion Gap 23.4 H (5-15) mmol/L BUN 16 (6-25) mg/dL Creatinine 0.90 (0.51-1.17) mg/dL Est Cr Clr Drug Dosing 90.56 mL/min Estimated GFR (MDRD) > 60 mL/min Glucose 82 (75 - 99) mg/dL Calcium 7.8 L (8.7-10.3) mg/dL Magnesium (1.8-2.4) mg/dL Total Bilirubin (0.2-1.0) mg/dL AST (15-37) U/L ALT (12-78) U/L Alkaline Phosphatase (46-116) IU/L Creatine Kinase (26-276) U/L CK-MB (CK-2) (0.00-4.30) ng/mL Troponin I 0.11 H* 0.07 0.08 H* (0.00-0.070) ng/mL Total Protein (6.4-8.2) g/dL Albumin (3.00-4.80) g/dL Ethyl Alcohol (NONE DETECTED) mg/dL 11/18/19 Range/Units 07:25 WBC 6.85 (5.00-10.00) 10^3/uL RBC 3.16 L (4.50-6.00) 10^6/uL Hgb 11.0 L D (13.0-17.0) g/dL Hct 32.4 L (40.0-52.0) % MCV 102.5 H (82.0-92.0) fL MCH 34.8 H (27.0-31.0) pg MCHC 34.0 (32.0-36.0) g/dL RDW 12.3 (11.5-14.5) % Plt Count 253 D (150-400) 10^3/uL MPV 8.9 (7.4-10.4) fL Immature Gran % (Auto) 0.3 (0.0-5.0) % Neut % (Auto) 73.4 H (50.0-70.0) % Lymph % (Auto) 14.7 L (20.0-40.0) % Bleckley % (Auto) 11.4 H (2.0-8.0) % Eos % (Auto) 0.1 L (1.0-3.0) % Baso % (Auto) 0.1 (0.0-1.0) % Immature Gran # (Auto) 0.02 (0.00-0.50) 10^3/uL Neut # (Auto) 5.02 (2.50-7.00) 10^3/uL Lymph # (Auto) 1.01 (1.00-4.00) 10^3/uL Bleckley # (Auto) 0.78 (0.10-0.80) 10^3/uL Eos # (Auto) 0.01 L (0.10-0.30) 10^3/uL Baso # (Auto) 0.01 (0.00-0.10) 10^3/uL Sodium (136-145) mmol/L Potassium (3.3-5.3) mmol/L Chloride (98-115) mmol/L Carbon Dioxide (21.0-32.0) mmol/L Anion Gap (5-15) mmol/L BUN (6-25) mg/dL Creatinine (0.51-1.17) mg/dL Est Cr Clr Drug Dosing mL/min Estimated GFR (MDRD) mL/min Glucose (75 - 99) mg/dL Calcium (8.7-10.3) mg/dL Magnesium (1.8-2.4) mg/dL Total Bilirubin (0.2-1.0) mg/dL AST (15-37) U/L ALT (12-78) U/L Alkaline Phosphatase (46-116) IU/L Creatine Kinase (26-276) U/L CK-MB (CK-2) (0.00-4.30) ng/mL Troponin I (0.00-0.070) ng/mL Total Protein (6.4-8.2) g/dL Albumin (3.00-4.80) g/dL Ethyl Alcohol (NONE DETECTED) mg/dL Med Orders - Current: Current Medications Acetaminophen (Tylenol) 650 mg PO Q4H PRN PRN Reason: Pain (Mild 1-3)/fever Last Admin: 06/26/19 03:20 Dose: 650 mg Albuterol (Ventolin Hfa) 0 gm INH Q4H PRN PRN Reason: Shortness of Breath Last Admin: 06/26/19 06:27 Dose: 2 puff Ceftriaxone Sodium (Rocephin) 1 gm IVPUSH Q24H [facility] Last Admin: 06/25/19 23:06 Dose: 1 gm Sodium Chloride (Normal Saline) 1,000 mls @ 100 mls/hr IV ASDIRECTED [facility] Last Admin: 06/26/19 06:28 Dose: 100 mls/hr Levetiracetam (Keppra) 1,000 mg PO BID@1000,2200 [facility] Last Admin: 06/25/19 22:24 Dose: 1,000 mg Lorazepam (Ativan) 5 mg IVPUSH ONETIME PRN PRN Reason: Seizures Nicotine (Habitrol) 21 mg TRDERM DAILY [facility] Last Admin: 06/26/19 08:42 Dose: 21 mg Ondansetron HCl (Zofran) 4 mg IVPUSH Q6H PRN PRN Reason: Nausea/Vomiting Last Admin: 06/25/19 21:17 Dose: 4 mg Phenytoin Sodium (Phenytoin) 300 mg PO BID [facility] Discontinued Medications Buspirone HCl (Buspar) 20 mg PO DAILY [facility] Buspirone HCl (Buspar) 30 mg PO DAILY [facility] Sodium Chloride (Normal Saline) 1,000 mls @ 999 mls/hr IV .BOLUS ONE Stop: 06/25/19 17:48 Last Admin: 06/25/19 16:50 Dose: 999 mls/hr Sodium Chloride (Normal Saline) 1,000 mls @ 999 mls/hr IV .BOLUS ONE Stop: 06/25/19 19:01 Last Admin: 06/25/19 18:18 Dose: 999 mls/hr Sertraline HCl (Zoloft) 50 mg PO DAILY [facility] Sertraline HCl (Zoloft) 25 mg PO DAILY [facility] Thiamine HCl (Vitamin B-1) 100 mg PO ONETIME ONE Stop: 06/25/19 19:09 Last Admin: 06/25/19 20:13 Dose: 100 mg - Exam Quality Assessment: Denies: Supplemental Oxygen, DVT Prophylaxis General: Reports: Alert, Oriented, Cooperative, No Acute Distress HEENT: Reports: Pupils Equal, Pupils Reactive, EOMI Lungs: Reports: Normal Respiratory Effort, Decreased Breath Sounds (throughout lung blankenship) Cardiovascular: Reports: Regular Rate (90 bpm apical), Regular Rhythm, No Murmurs Skin: Reports: Warm, Dry, Other (left eye/orbit: severe edema and ecchymosis of left eye limiting vision, no open wound or surrounding erythema) Neurological: Reports: Normal Speech, Normal Tone Psy/Mental Status: Reports: Alert, Normal Affect, Normal Mood. Denies: Withdrawal Symptoms
[2019-06-26] MEDS: levETIRAcetam 500 MG Tab PO SCH (10:57)
== END 2019-06-26 12:10 | disposition home or self-care (01) ==
LOC: KA.ED 16:40 → KA.MS 18:02
PROVIDERS: ADMIT Nurse Practitioner Family; ATTEND Nurse Practitioner Family
DX: E86.0 Dehydration (principal); I95.1 Orthostatic hypotension; R79.89 Other specified abnormal findings of blood chemistry; S02.842A Fracture of lateral orbital wall, left side, initial encounter for closed fracture; T63.441A Toxic effect of venom of bees, accidental (unintentional), initial encounter; I10 Essential (primary) hypertension; E11.9 Type 2 diabetes mellitus without complications; G40.909 Epilepsy, unspecified, not intractable, without status epilepticus; J44.9 Chronic obstructive pulmonary disease, unspecified; F10.129 Alcohol abuse with intoxication, unspecified; F33.9 Major depressive disorder, recurrent, unspecified; F41.9 Anxiety disorder, unspecified; F17.210 Nicotine dependence, cigarettes, uncomplicated; Z88.5 Allergy status to narcotic agent; Z79.899 Other long term (current) drug therapy; Z79.84 Long term (current) use of oral hypoglycemic drugs
CPT/HCPCS: 36415; 70450; 71045; 80048; 80053; 80320; 82550; 82553; 83735; 84484; 85025; 93005; 96360; 99285; A9270; J0696; J2405; J7030; 96361; 96374; 96375; G0378; G0480

== ENCOUNTER 2020-02-05 15:22 | Emergency (ER) | payer BC, OTHER ==
--- NOTE | 2020-02-05 16:09 | EDM.PDOC ---
ED HPI GENERAL MEDICAL PROBLEM - General Chief Complaint: Abdominal Pain Stated Complaint: Right groin pain Time Seen by Provider: 02/05/20 15:53 Source of Information: Reports: Patient History Limitations: Reports: No Limitations - History of Present Illness INITIAL COMMENTS - FREE TEXT/NARRATIVE: Patient is a 59-year-old gentleman who presents to the emergency department this afternoon with a complaint of right groin pain. Patient states on Wednesday while working at [employer], he outstretched to catch something that was falling and felt a pull in his right groin. Patient states that the pain has been persistent and he thought maybe he had a hernia. Patient has history of left inguinal hernia repair at 14 years of age. However denies abdominal pain, nausea, vomiting, diarrhea, chest pain, shortness of breath, or right lower extremity pain. Onset: Sudden Onset Date: 02/03/20 Duration: Day(s): Location: Reports: Abdomen Quality: Reports: Ache Severity: Mild Improves with: Reports: None Worsens with: Reports: Movement Context: Reports: Activity Associated Symptoms: Reports: No Other Symptoms. Denies: Chest Pain, Fever/Chills, Nausea/Vomiting, Shortness of Breath - Related Data Allergies Allergy/AdvReac Type Severity Reaction Status Date / Time codeine Allergy Vomiting Verified 06/25/19 17:11 Home Meds: Home Meds metFORMIN HCl [Metformin ER Osmotic] 250 mg PO DAILY 03/27/16 [History] Albuterol [Ventolin HFA] 1 - 2 puff INH Q4H PRN 02/07/18 [History] Phenytoin 300 cap PO BID 02/07/18 [History] levETIRAcetam [Keppra] 1,000 mg PO BID 06/25/19 [History] Sertraline HCl [Zoloft] 150 mg PO DAILY #0 06/26/19 [Rx] busPIRone HCl [Buspirone HCl] 15 mg PO BID #0 06/26/19 [Rx] busPIRone HCl [Buspirone HCl] 20 mg PO DAILY #0 06/26/19 [Rx] cephALEXin [Keflex] 500 mg PO Q12H #14 cap 06/26/19 [Rx] Past Medical History Cardiovascular History: Reports: Hypertension Respiratory History: Reports: COPD Musculoskeletal History: Reports: Back Pain, Chronic, Fracture Neurological History: Reports: Concussion, Head Trauma, Seizure Psychiatric History: Reports: Anxiety, Depression, PTSD Endocrine/Metabolic History: Reports: Diabetes, Type II - Infectious Disease History Infectious Disease History: Reports: Chicken Pox - Past Surgical History Neurological Surgical History: Reports: None Social & Family History - Family History Family Medical History: Noncontributory Cardiac: Reports: CAD (father) Endocrine/Metabolic: Reports: Diabetes, type II (mother) Oncologic: Reports: Prostate (father) - Caffeine Use Caffeine Use: Reports: Coffee Other Caffeine Use: Drinks 1 pot of coffee per day ED ROS GENERAL - Review of Systems Review Of Systems: Comprehensive ROS is negative, except as noted in HPI. Constitutional: Reports: No Symptoms HEENT: Reports: No Symptoms Respiratory: Reports: No Symptoms Cardiovascular: Reports: No Symptoms Endocrine: Reports: No Symptoms GI/Abdominal: Reports: Abdominal Pain : Reports: No Symptoms Musculoskeletal: Reports: No Symptoms Skin: Reports: No Symptoms Neurological: Reports: No Symptoms Psychiatric: Reports: No Symptoms Hematologic/Lymphatic: Reports: No Symptoms Immunologic: Reports: No Symptoms ED EXAM, GI/ABD - Physical Exam Exam: See Below Exam Limited By: No Limitations General Appearance: Alert, WD/WN, No Apparent Distress Throat/Mouth: Normal Inspection, Normal Oropharynx, No Airway Compromise Head: Atraumatic, Normocephalic Neck: Normal Inspection Respiratory/Chest: No Respiratory Distress, Lungs Clear, Normal Breath Sounds, No Accessory Muscle Use, Chest Non-Tender Cardiovascular: Regular Rate, Rhythm, No Murmur GI/Abdominal Exam: Normal Bowel Sounds, Soft, No Organomegaly, No Distention, No Abnormal Bruit, No Mass, Pelvis Stable, Other (Minimally tender to palpation of right inguinal region. No edema, crepitus, ecchymosis, or erythema noted). No: Hernia (Male) Exam: No Hernia, Normal Inspection, Circumcised. No: Hernia, Rash, Scrotal Swelling, Scrotum Tenderness (L), Scrotum Tenderness (R), Testicular Mass, Testicular Tenderness (L), Testicular Tenderness (R) Back Exam: Normal Inspection. No: CVA Tenderness (L), CVA Tenderness (R) Extremities: Normal Inspection, No Pedal Edema Neurological: Alert, Oriented, Normal Cognition Psychiatric: Normal Affect, Normal Mood Skin Exam: Warm, Dry, Intact, Normal Color, No Rash Lymphatic: No Adenopathy Course - Re-Assessments/Exams Free Text/Narrative Re-Assessment/Exam: 02/05/20 16:09 Patient afebrile, vital signs stable, nontoxic appearing. No hernia appreciated on exam. Patient has groin muscle strain. Patient will follow-up with PCP Departure - Departure Time of Disposition: 16:09 Disposition: Home, Self-Care 01 Clinical Impression: Strain of muscle of right groin region - Discharge Information Instructions: Muscle Strain, [id number], How to Use Cold Therapy, [id number] Referrals: Kimberly Desir [employer] [Primary Care Provider] - Forms: ED Department Discharge Additional Instructions: Follow-up at [facility] in 2 days for recheck. Return to emergency department sooner symptoms continue or worsen. - Assessment/Plan Assessment:: Groin muscle pull Plan: Follow-up with PCP
[2020-02-05 18:31] VITALS: BP 156/85; PULSE 92
== END 2020-02-05 16:21 | disposition home or self-care (01) ==
LOC: KA.ED 15:22
DX: S39.011A Strain of muscle, fascia and tendon of abdomen, initial encounter (principal); I10 Essential (primary) hypertension; J44.9 Chronic obstructive pulmonary disease, unspecified; F41.9 Anxiety disorder, unspecified; F32.9 Major depressive disorder, single episode, unspecified; E11.9 Type 2 diabetes mellitus without complications; R56.9 Unspecified convulsions; Z79.84 Long term (current) use of oral hypoglycemic drugs; Z79.899 Other long term (current) drug therapy; Z88.5 Allergy status to narcotic agent; W18.30XA Fall on same level, unspecified, initial encounter
CPT/HCPCS: 99283

== ENCOUNTER 2020-12-04 16:54 | Emergency (ER) | payer BC ==
--- NOTE | 2020-12-04 17:15 | EDM.PDOC ---
ED HPI GENERAL MEDICAL PROBLEM - General Chief Complaint: Neurological Problem Stated Complaint: SIEZURE AT WORK TODAY Time Seen by Provider: 12/04/20 17:15 Source of Information: Reports: Patient - History of Present Illness INITIAL COMMENTS - FREE TEXT/NARRATIVE: Mark, 60-year-old male, presents accompanied with his after he had seizure activity at work today. He has a known seizure disorder. He states he felt this coming on and was able to set himself onto the floor avoiding any injury. States it was typical of his history but is been nearly 2 years since his last seizure activity. He feels electric type shock "Being tased", and a metallic taste in his mouth. He was evaluated at work and found to be hypertensive at that time and recommendation for emergency department assessment were given. He presents per pedis with no distress, no imbalance, stating he feels fine at this time. Denies any chest pain shortness of breath other than his chronic COPD issues as he is continuing to smoke roughly 1/2 pack/day. States there is significant stress at work. Onset: Today Duration: Minutes:, Resolved Prior to Arrival Location: Reports: Head Severity: Mild Associated Symptoms: Reports: No Other Symptoms - Related Data Allergies Allergy/AdvReac Type Severity Reaction Status Date / Time codeine Allergy Vomiting Verified 12/04/20 17:04 Home Meds: Home Meds metFORMIN HCl [Metformin ER Osmotic] 250 mg PO DAILY 03/27/16 [History] Albuterol [Ventolin HFA] 1 - 2 puff INH Q4H PRN 02/07/18 [History] Phenytoin 300 cap PO BID 02/07/18 [History] levETIRAcetam [Keppra] 1,000 mg PO BID 06/25/19 [History] Sertraline HCl [Zoloft] 150 mg PO DAILY #0 06/26/19 [Rx] busPIRone HCl [Buspirone HCl] 15 mg PO DAILY 12/04/20 [History] Past Medical History Cardiovascular History: Reports: Hypertension Respiratory History: Reports: COPD Musculoskeletal History: Reports: Back Pain, Chronic, Fracture Neurological History: Reports: Concussion, Head Trauma, Seizure Psychiatric History: Reports: Anxiety, Depression, PTSD Endocrine/Metabolic History: Reports: Diabetes, Type II - Infectious Disease History Infectious Disease History: Reports: Chicken Pox - Past Surgical History GI Surgical History: Reports: Hernia, Inguinal Neurological Surgical History: Reports: None Social & Family History - Family History Family Medical History: No Pertinent Family History Cardiac: Reports: CAD Endocrine/Metabolic: Reports: Diabetes, type II Oncologic: Reports: Prostate - Tobacco Use Tobacco Use Status *Q: Current Every Day Tobacco User Used Tobacco, but Quit: No Smoking Cessation Information Provided To Patient: Patient Refused - Caffeine Use Caffeine Use: Reports: Coffee Other Caffeine Use: Drinks 1 pot of coffee per day - Alcohol Use Alcohol Use History: Yes Days Per Week of Alcohol Use: 7 Number of Drinks Per Day: 3 Total Drinks Per Week: 21 Alcohol Use in Last Twelve Months: Yes Alcohol Use Frequency: Daily ED ROS GENERAL - Review of Systems Review Of Systems: Comprehensive ROS is negative, except as noted in HPI. ED EXAM, GENERAL - Physical Exam Exam: See Below Free Text/Narrative:: Alert, oriented, in no acute distress. There is a no evidence of cyanosis nor pallor with pink moist mucous membranes. HEENT is negative to discharge or deformity. There is no tenderness the cervical chain nor paraspinal muscles. Thorax is overall clear raspy of what I attribute to his smoking with no wheezes nor crackles noted. Cardiac is S1-S2 with no appreciated murmur. 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 Denies any injury aches or pains from this small seizure that is his typical pattern, although it is been 2 years since his last seizure activity. States he is scheduled for neurology recheck which he has every 6 months, in the upcoming 3 weeks. Course - Vital Signs Last Recorded V/S: Last Vital Signs Temp 97.9 F 12/04/20 17:00 Pulse 84 12/04/20 17:00 Resp 16 12/04/20 17:00 BP 133/78 12/04/20 17:00 Pulse Ox 97 12/04/20 17:00 - Orders/Labs/Meds Orders: Active Orders 24 hr Category Date Time Status COMPREHENSIVE METABOLIC PN,CMP [CHEM] Stat Lab 12/04/20 17:24 Ordered LEVETIRACETAM, S [REF] Routine Lab 12/04/20 17:27 Ordered PHENYTOIN [REF] Stat Lab 12/04/20 17:26 Ordered Labs: Laboratory Tests 12/04/20 Range/Units 17:35 WBC 4.50 L (5.00-10.00) 10^3/uL RBC 3.77 L (4.50-6.00) 10^6/uL Hgb 12.5 L D (13.0-17.0) g/dL Hct 36.8 L (40.0-52.0) % MCV 97.6 H D (82.0-92.0) fL MCH 33.2 H (27.0-31.0) pg MCHC 34.0 (32.0-36.0) g/dL RDW 12.8 (11.5-14.5) % Plt Count 271 (150-400) 10^3/uL MPV 9.1 (7.4-10.4) fL Immature Gran % (Auto) 0.0 (0.0-5.0) % Neut % (Auto) 63.7 (50.0-70.0) % Lymph % (Auto) 22.2 (20.0-40.0) % Traill % (Auto) 9.8 H (2.0-8.0) % Eos % (Auto) 3.6 H (1.0-3.0) % Baso % (Auto) 0.7 (0.0-1.0) % Neut # (Auto) 2.87 (2.50-7.00) 10^3/uL Lymph # (Auto) 1.00 (1.00-4.00) 10^3/uL Traill # (Auto) 0.44 (0.10-0.80) 10^3/uL Eos # (Auto) 0.16 (0.10-0.30) 10^3/uL Baso # (Auto) 0.03 (0.00-0.10) 10^3/uL Immature Gran # (Auto) 0.00 (0.00-0.50) 10^3/uL Departure - Departure Time of Disposition: 18:21 Disposition: Home, Self-Care 01 Condition: Good Clinical Impression: Seizure disorder, Anemia - Discharge Information *PRESCRIPTION DRUG MONITORING PROGRAM REVIEWED*: Not Applicable *COPY OF PRESCRIPTION DRUG MONITORING REPORT IN PATIENT MICHELLE: Not Applicable Referrals: Aylin Tellez PA-C [Primary Care Provider] - Forms: ED Department Discharge Additional Instructions: Your lab values returned showing your chronic anemia is similar to your last reading. You should discuss this with your provider when you are there for your appointment next week. Your potassium is slightly elevated, this is likely due to the amount of bananas urinating as well as the potassium supplement drinks such as Gatorade or Powerade. Please cut back to 1 banana a day most until you have your potassium rechecked next week. Your kidney function appears within normal limits at this time reflecting good hydration status. The Keppra and phenytoin levels will return over the weekend be available for you for your appointment with neurology next week. Continue your medications as directed and follow-up with your appointment for next week. [facility] illness form completed. Sepsis Event Note (ED) - Focused Exam Vital Signs: Vital Signs Temp Pulse Resp BP Pulse Ox 12/04/20 17:00 97.9 F 84 16 133/78 97 - Problem List & Annotations (1) Seizure disorder SNOMED Code(s): 932287734 Code(s): G40.909 - EPILEPSY, UNSP, NOT INTRACTABLE, WITHOUT STATUS EPILEPTICUS Status: Chronic Priority: Medium Current Visit: Yes (2) Anemia SNOMED Code(s): 996160781 Code(s): D64.9 - ANEMIA, UNSPECIFIED Status: Chronic Priority: Medium Current Visit: Yes Qualifiers: Anemia type: unspecified type Qualified Code(s): D64.9 - Anemia, unspecified (3) COPD not affecting current episode of care SNOMED Code(s): 66403739 Code(s): J44.9 - CHRONIC OBSTRUCTIVE PULMONARY DISEASE, UNSPECIFIED Status: Chronic Priority: Medium Current Visit: Yes - Problem List Review Problem List Initiated/Reviewed/Updated: Yes - My Orders Last 24 Hours: My Active Orders 12/04/20 17:24 COMPREHENSIVE METABOLIC PN,CMP [CHEM] Stat 12/04/20 17:26 PHENYTOIN [REF] Stat 12/04/20 17:27 LEVETIRACETAM, S [REF] Routine - Assessment/Plan Last 24 Hours: My Active Orders 12/04/20 17:24 COMPREHENSIVE METABOLIC PN,CMP [CHEM] Stat 12/04/20 17:26 PHENYTOIN [REF] Stat 12/04/20 17:27 LEVETIRACETAM, S [REF] Routine Plan: Your lab values returned showing your chronic anemia is similar to your last reading. You should discuss this with your provider when you are there for your appointment next week. Your potassium is slightly elevated, this is likely due to the amount of bananas urinating as well as the potassium supplement drinks such as Gatorade or Powerade. Please cut back to 1 banana a day most until you have your potassium rechecked next week. Your kidney function appears within normal limits at this time reflecting good hydration status. The Keppra and phenytoin levels will return over the weekend be available for you for your appointment with neurology next week. Continue your medications as directed and follow-up with your appointment for next week. [facility] illness form completed.
[2020-12-04 17:34] VITALS: BP 133/78; PULSE 84
[2020-12-04 18:05] LABS: ANION GAP 14.1 mmol/L (5-15); CHLORIDE,CL 104 mmol/L (98-107); SODIUM,NA 139 mmol/L (136-145)
== END 2020-12-04 18:30 | disposition home or self-care (01) ==
LOC: KA.ED 16:54
DX: G40.909 Epilepsy, unspecified, not intractable, without status epilepticus (principal); D64.9 Anemia, unspecified; E87.5 Hyperkalemia; I10 Essential (primary) hypertension; J44.9 Chronic obstructive pulmonary disease, unspecified; E11.9 Type 2 diabetes mellitus without complications; Z72.0 Tobacco use; Z88.5 Allergy status to narcotic agent; Z79.84 Long term (current) use of oral hypoglycemic drugs; Z79.899 Other long term (current) drug therapy
CPT/HCPCS: 36415; 80053; 80177; 80185; 85025; 99284

== ENCOUNTER 2023-03-16 13:01 | Emergency (ER) | payer BC ==
[2023-03-16] MEDS ORDERED: Sodium Chloride 0.9% 10 ML Syringe FLUSH PRN (13:11)
[2023-03-16 13:21] LABS: BASOPHILS ABSOLUTE AUTO 0.02 10^3/uL (0.00-0.10); BASOPHILS PERCENT AUTO 0.4 % (0.0-1.0); EOSINOPHILS ABSOLUTE AUTO 0.01 10^3/uL (0.10-0.30); EOSINOPHILS PERCENT AUTO 0.2 % (1.0-3.0); HEMOGLOBIN 12.2 g/dL (13.0-17.0); IMMATURE GRAN ABSOLUTE AUTO 0.01 10^3/uL (0.00-0.50); IMMATURE GRAN PERCENT AUTO 0.2 % (0.0-5.0); LYMPHOCYTES ABSOLUTE AUTO 0.87 10^3/uL (1.00-4.00); LYMPHOCYTES PERCENT AUTO 15.4 % (20.0-40.0); MEAN CORPUSCULAR HEMOGLOBIN 35.7 pg (27.0-31.0); MEAN CORPUSCULAR HGB CONC 35.9 g/dL (32.0-36.0); MEAN CORPUSCULAR VOLUME 99.4 fL (82.0-92.0); MEAN PLATELET VOLUME 8.7 fL (7.4-10.4); MONOCYTES PERCENT AUTO 10.6 % (2.0-8.0); NEUTROPHILS ABSOLUTE AUTO 4.15 10^3/uL (2.50-7.00); NEUTROPHILS PERCENT AUTO 73.2 % (50.0-70.0); PLATELET COUNT,PLT 281 10^3/uL (150-400); RED BLOOD CELL COUNT 3.42 10^6/uL (4.50-6.00); RED CELL DISTRIBUTION WIDTH 11.5 % (11.5-14.5); WHITE BLOOD CELL COUNT,WBC 5.66 10^3/uL (5.00-10.00)
[2023-03-16] MEDS: levETIRAcetam in NaCl (iso-os) 1,000 MG in Premix Bag 1 BAG IV ONE ×2 (13:27)
[2023-03-16] MEDS: Sodium Chloride 0.9% 50 ML IV SCH (13:29)
[2023-03-16] MEDS: Sodium Chloride 0.9% 50 ML ONE (13:34)
[2023-03-16 13:36] LABS: ALANINE AMINOTRANSFERASE,ALT 35 U/L (14-63); ALBUMIN 3.91 g/dL (3.40-5.00); ALKALINE PHOSPHATASE 106 U/L (46-116); ANION GAP 16.3 mmol/L (5-15); ASPARTATE AMNIOTRANSFERASE,AST 44 U/L (15-37); BILIRUBIN TOTAL 0.6 mg/dL (0.2-1.0); BLOOD UREA NITROGEN,BUN 17 mg/dL (7-18); CALCIUM 8.8 mg/dL (8.7-10.3); CARBON DIOXIDE,CO2 25.5 mmol/L (21.0-32.0); CHLORIDE,CL 91 mmol/L (98-107); CREATININE 0.86 mg/dL (0.51-1.17); EST CRCL DRUG DOSING (CG) 91.34 mL/min; GLUCOSE RANDOM 156 mg/dL (70-140); POTASSIUM,K 5.8 mmol/L (3.5-5.1); PROTEIN TOTAL,TP 6.6 g/dL (6.4-8.2); SODIUM,NA 127 mmol/L (136-145)
[2023-03-16 13:37] LABS: C-REACTIVE PROTEIN < 0.4 mg/dL (0.0-0.9); ESTIMATED GFR 99 mL/min (>=60)
[2023-03-16] MEDS: Ondansetron 4 MG/2 ML SDV IVPUSH ONE (14:08)
[2023-03-16] MEDS: Ondansetron 4 MG/2 ML SDV ONE (14:11)
[2023-03-16] MEDS: Phenytoin 250 MG in Sodium Chloride 0.9% 100 ML IV ONE ×2 (14:22→14:29)
[2023-03-16] MEDS: Sodium Chloride 0.9% 1,000 ML IV ONE (14:28)
[2023-03-16 15:58] VITALS: BP 127/75; PULSE 89
== END 2023-03-16 16:45 | disposition home or self-care (01) ==
LOC: KA.ED 13:01
DX: G40.909 Epilepsy, unspecified, not intractable, without status epilepticus (principal); F17.210 Nicotine dependence, cigarettes, uncomplicated; E11.9 Type 2 diabetes mellitus without complications; J44.9 Chronic obstructive pulmonary disease, unspecified; I25.2 Old myocardial infarction; I10 Essential (primary) hypertension; Z79.84 Long term (current) use of oral hypoglycemic drugs; Z79.899 Other long term (current) drug therapy; Z88.5 Allergy status to narcotic agent
CPT/HCPCS: 36415; 71045; 80053; 80177; 80185; 83605; 85025; 86140; 96361; 96365; 96367; 96375; 99284; 99284-25; J1165; J1953; J2405; J3490; J7030

== ENCOUNTER 2023-07-04 17:27 | Emergency (ER) | payer BC ==
[2023-07-04] MEDS: HYDROmorphone 1 MG/ML Syringe IVPUSH ONE (18:04)
[2023-07-04] MEDS: Sodium Chloride 0.9% 1,000 ML IV ONE (18:09)
[2023-07-04] MEDS: Ondansetron 4 MG/2 ML SDV IVPUSH ONE (18:10)
[2023-07-04 18:12] LABS: BASOPHILS ABSOLUTE AUTO 0.03 10^3/uL (0.00-0.10); BASOPHILS PERCENT AUTO 0.5 % (0.0-1.0); EOSINOPHILS ABSOLUTE AUTO 0.02 10^3/uL (0.10-0.30); EOSINOPHILS PERCENT AUTO 0.3 % (1.0-3.0); HEMATOCRIT 31.2 % (40.0-52.0); IMMATURE GRAN ABSOLUTE AUTO 0.04 10^3/uL (0.00-0.50); IMMATURE GRAN PERCENT AUTO 0.7 % (0.0-5.0); LYMPHOCYTES ABSOLUTE AUTO 0.86 10^3/uL (1.00-4.00); MEAN CORPUSCULAR HEMOGLOBIN 38.9 pg (27.0-31.0); MEAN CORPUSCULAR HGB CONC 35.3 g/dL (32.0-36.0); MEAN CORPUSCULAR VOLUME 110.2 fL (82.0-92.0); MONOCYTES ABSOLUTE AUTO 0.67 10^3/uL (0.10-0.80); MONOCYTES PERCENT AUTO 10.9 % (2.0-8.0); NEUTROPHILS ABSOLUTE AUTO 4.51 10^3/uL (2.50-7.00); NEUTROPHILS PERCENT AUTO 73.6 % (50.0-70.0); PLATELET COUNT,PLT 328 10^3/uL (150-400); RED BLOOD CELL COUNT 2.83 10^6/uL (4.50-6.00); RED CELL DISTRIBUTION WIDTH 15.9 % (11.5-14.5); WHITE BLOOD CELL COUNT,WBC 6.13 10^3/uL (5.00-10.00)
[2023-07-04 18:27] LABS: ALBUMIN 3.72 g/dL (3.40-5.00); ANION GAP 23.4 mmol/L (5-15); BILIRUBIN TOTAL 0.2 mg/dL (0.2-1.0); CALCIUM 8.2 mg/dL (8.7-10.3); CARBON DIOXIDE,CO2 18.4 mmol/L (21.0-32.0); CREATININE 0.63 mg/dL (0.51-1.17); EST CRCL DRUG DOSING (CG) 123.13 mL/min; POTASSIUM,K 4.8 mmol/L (3.5-5.1); PROTEIN TOTAL,TP 6.5 g/dL (6.4-8.2)
[2023-07-04 18:41] VITALS: BP 137/76; PULSE 89
== END 2023-07-04 19:00 ==
LOC: KA.ED 17:27
DX: S72.142A Displaced intertrochanteric fracture of left femur, initial encounter for closed fracture (principal); F10.129 Alcohol abuse with intoxication, unspecified; I10 Essential (primary) hypertension; I25.2 Old myocardial infarction; J44.9 Chronic obstructive pulmonary disease, unspecified; E11.9 Type 2 diabetes mellitus without complications; Z88.8 Allergy status to other drugs, medicaments and biological substances; Z79.84 Long term (current) use of oral hypoglycemic drugs; Z79.899 Other long term (current) drug therapy; Z86.16 Personal history of COVID-19; W19.XXXA Unspecified fall, initial encounter
CPT/HCPCS: 70450; 71045; 72125; 80053; 80307; 85025; 96361; 96374; 96375; 99284; 99285-25; J1170; J2405; J7030

== ENCOUNTER 2023-07-10 11:53 | Inpatient (IN) | payer BC ==
[2023-07-10] MEDS ORDERED: Sennosides/Docusate Sodium 50-8.6 MG Tab PO PRN (13:37)
[2023-07-10] MEDS ORDERED: Polyethylene Glycol 3350 Powder 17 GM Packet PO PRN (13:37)
[2023-07-10] MEDS ORDERED: Albuterol 8 GM Inhaler INH PRN (13:40)
[2023-07-10] MEDS ORDERED: Ondansetron 4 MG Tab.DIS PO PRN (13:40)
[2023-07-10] MEDS: Acetaminophen 325 MG Tab PO PRN ×2 (15:13→19:55)
[2023-07-10] MEDS: levETIRAcetam 500 MG Tab PO SCH (21:06)
[2023-07-10] MEDS: Phenytoin 100 MG Cap.ER PO SCH (21:07)
[2023-07-10] MEDS: Aspirin 81 MG Tab.Chew PO SCH (21:07)
[2023-07-10] MEDS: Vitamin B Complex Tab PO SCH (21:08)
[2023-07-10] MEDS ORDERED: Nicotine 21 MG/24 Hr Patch ONE (22:38)
[2023-07-10] MEDS: Acetaminophen/HYDROcodone 325-5 MG Tab PO PRN (22:41)
[2023-07-10] MEDS: Nicotine 21 MG/24 Hr Patch TRDERM SCH (22:42)
[2023-07-11] MEDS: Acetaminophen 325 MG Tab PO PRN ×4 (05:33→20:44)
[2023-07-11] MEDS: Levothyroxine 25 MCG Tab PO SCH (06:53)
[2023-07-11] MEDS: Phenytoin 100 MG Cap.ER PO SCH ×2 (09:32→20:45)
[2023-07-11] MEDS: Folic Acid 1 MG Tab PO SCH (09:32)
[2023-07-11] MEDS: levETIRAcetam 500 MG Tab PO SCH ×2 (09:32→20:45)
[2023-07-11] MEDS: Thiamine 100 MG Tab PO SCH (09:32)
[2023-07-11] MEDS: Aspirin 81 MG Tab.Chew PO SCH ×2 (09:33→20:46)
[2023-07-11] MEDS: busPIRone 10 MG Tab PO SCH (09:33)
[2023-07-11] MEDS: Escitalopram 10 MG Tab PO SCH (09:33)
[2023-07-11] MEDS: metFORMIN 500 MG Tab PO SCH (09:33)
[2023-07-11] MEDS: Vitamin B Complex Tab PO SCH ×2 (09:33→20:46)
[2023-07-11] MEDS: Nicotine 21 MG/24 Hr Patch TRDERM SCH (09:36)
[2023-07-11] MEDS: Lisinopril 20 MG Tab PO SCH (09:38)
[2023-07-11] MEDS: Acetaminophen/HYDROcodone 325-5 MG Tab PO PRN ×2 (13:21→22:16)
[2023-07-12] MEDS: Acetaminophen/HYDROcodone 325-5 MG Tab PO PRN ×5 (02:16→22:56)
[2023-07-12] MEDS: Acetaminophen 325 MG Tab PO PRN ×2 (04:53→20:38)
[2023-07-12] MEDS: Levothyroxine 25 MCG Tab PO SCH (07:38)
[2023-07-12] MEDS: Phenytoin 100 MG Cap.ER PO SCH ×2 (09:06→20:38)
[2023-07-12] MEDS: levETIRAcetam 500 MG Tab PO SCH ×2 (09:06→20:38)
[2023-07-12] MEDS: Vitamin B Complex Tab PO SCH ×2 (09:06→20:38)
[2023-07-12] MEDS: Thiamine 100 MG Tab PO SCH (09:06)
[2023-07-12] MEDS: metFORMIN 500 MG Tab PO SCH (09:07)
[2023-07-12] MEDS: busPIRone 10 MG Tab PO SCH (09:07)
[2023-07-12] MEDS: Folic Acid 1 MG Tab PO SCH (09:07)
[2023-07-12] MEDS: Escitalopram 10 MG Tab PO SCH (09:07)
[2023-07-12] MEDS: Lisinopril 20 MG Tab PO SCH (09:08)
[2023-07-12] MEDS: Aspirin 81 MG Tab.Chew PO SCH ×2 (09:08→20:38)
[2023-07-12] MEDS: Nicotine 21 MG/24 Hr Patch TRDERM SCH (09:08)
[2023-07-13] MEDS ORDERED: Melatonin 3 MG Tab PO PRN (01:28)
[2023-07-13] MEDS: Acetaminophen 325 MG Tab PO PRN (01:37)
[2023-07-13] MEDS ORDERED: VANCOmycin 1 GM/200 ML 1 GM in Premix Bag 1 BAG IV SCH (03:15)
[2023-07-13] MEDS: Acetaminophen/HYDROcodone 325-5 MG Tab PO PRN ×2 (04:08→08:49)
[2023-07-13] MEDS: Levothyroxine 25 MCG Tab PO SCH (06:34)
[2023-07-13] MEDS: Escitalopram 10 MG Tab PO SCH (08:48)
[2023-07-13] MEDS: busPIRone 10 MG Tab PO SCH (08:48)
[2023-07-13] MEDS: Thiamine 100 MG Tab PO SCH (08:48)
[2023-07-13] MEDS: metFORMIN 500 MG Tab PO SCH (08:48)
[2023-07-13] MEDS: Phenytoin 100 MG Cap.ER PO SCH (08:48)
[2023-07-13] MEDS: Folic Acid 1 MG Tab PO SCH (08:48)
[2023-07-13] MEDS: levETIRAcetam 500 MG Tab PO SCH (08:49)
[2023-07-13] MEDS: Lisinopril 20 MG Tab PO SCH (08:49)
[2023-07-13] MEDS: Nicotine 21 MG/24 Hr Patch TRDERM SCH (08:50)
[2023-07-13] MEDS: Aspirin 81 MG Tab.Chew PO SCH (08:50)
[2023-07-13] MEDS: Vitamin B Complex Tab PO SCH (08:50)
[2023-07-13] MEDS ORDERED: Sodium Chloride 0.9% 1,000 ML ONE (12:56)
[2023-07-13] MEDS: Sodium Chloride 0.9% 1,000 ML IV ONE ×2 (13:00→13:57)
[2023-07-13] MEDS ORDERED: Sodium Chloride 0.9% 1,000 ML IV SCH (13:15)
[2023-07-13 13:43] LABS: BASOPHILS ABSOLUTE AUTO 0.04 10^3/uL (0.00-0.10); BASOPHILS PERCENT AUTO 0.4 % (0.0-1.0); EOSINOPHILS ABSOLUTE AUTO 0.04 10^3/uL (0.10-0.30); EOSINOPHILS PERCENT AUTO 0.4 % (1.0-3.0); HEMATOCRIT 33.8 % (40.0-52.0); HEMOGLOBIN 11.8 g/dL (13.0-17.0); IMMATURE GRAN ABSOLUTE AUTO 0.21 10^3/uL (0.00-0.50); IMMATURE GRAN PERCENT AUTO 2.2 % (0.0-5.0); LYMPHOCYTES ABSOLUTE AUTO 1.35 10^3/uL (1.00-4.00); LYMPHOCYTES PERCENT AUTO 13.9 % (20.0-40.0); MEAN CORPUSCULAR HEMOGLOBIN 35.8 pg (27.0-31.0); MEAN CORPUSCULAR HGB CONC 34.9 g/dL (32.0-36.0); MEAN CORPUSCULAR VOLUME 102.4 fL (82.0-92.0); MEAN PLATELET VOLUME 8.9 fL (7.4-10.4); MONOCYTES ABSOLUTE AUTO 1.01 10^3/uL (0.10-0.80); MONOCYTES PERCENT AUTO 10.4 % (2.0-8.0); NEUTROPHILS ABSOLUTE AUTO 7.03 10^3/uL (2.50-7.00); NEUTROPHILS PERCENT AUTO 72.7 % (50.0-70.0); PLATELET COUNT,PLT 942 10^3/uL (150-400); RED CELL DISTRIBUTION WIDTH 16.2 % (11.5-14.5); WHITE BLOOD CELL COUNT,WBC 9.68 10^3/uL (5.00-10.00)
[2023-07-13] MEDS ORDERED: levETIRAcetam in NaCl (iso-os) 500 MG in Premix Bag 1 BAG IV ONE ×4 (14:02→14:16)
[2023-07-13 14:20] LABS: ALBUMIN 2.23 g/dL (3.40-5.00); ANION GAP 19.1 mmol/L (5-15); BILIRUBIN TOTAL 0.6 mg/dL (0.2-1.0); CALCIUM 7.5 mg/dL (8.7-10.3); CARBON DIOXIDE,CO2 17.3 mmol/L (21.0-32.0); CREATININE 0.86 mg/dL (0.51-1.17); EST CRCL DRUG DOSING (CG) 90.2 mL/min; POTASSIUM,K 4.4 mmol/L (3.5-5.1)
[2023-07-13] MEDS ORDERED: Sodium Chloride 0.9% 1,000 ML IV ONE (14:20)
[2023-07-13] MEDS ORDERED: Piperacillin/Tazobactam 4.5 GM in Sodium Chloride 0.9% 100 ML IV SCH (14:30)
[2023-07-13] MEDS ORDERED: Heparin Sodium 5,000 Units/ML Vial IVPUSH ONE (14:40)
[2023-07-13] MEDS ORDERED: Ticagrelor 90 MG Tab PO ONE (14:40)
[2023-07-13] MEDS ORDERED: Iopamidol 755 Mg/ML 100 ML Bottle IV ONE (14:42)
[2023-07-13] MEDS ORDERED: Heparin Sodium/D5W 250 ML IV SCH (14:45)
[2023-07-13] MEDS ORDERED: Sodium Chloride 0.9% 50 ML IV SCH (14:45)
[2023-07-13] MEDS ORDERED: Norepinephrine Bit/0.9 % NaCl 4 MG in Premix Bag 1 BAG IV SCH ×4 (15:00)
[2023-07-13] MEDS ORDERED: VANCOmycin 1.5 GM/300 ML 1.5 GM in Premix Bag 1 BAG IV ONE (15:15)
[2023-07-13 15:26] LABS: INR 1.1 (0.9-1.1); PROTHROMBIN TIME 10.9 SEC (9.2-11.2); PTT,PARTIAL THROMBOPLSTIN TIME 29.9 SEC (22.8-31.4)
[2023-07-13 16:22] VITALS: BP 81/52; PULSE 77
[2023-07-13] MEDS ORDERED: Aspirin 81 MG Tab.Chew PO SCH (21:00)
== END 2023-07-13 17:15 | DRG 862 ==
LOC: KA.MS 11:53
PROVIDERS: ADMIT Internal Medicine; ATTEND Internal Medicine
DX: S72.002D Fracture of unspecified part of neck of left femur, subsequent encounter for closed fracture with routine healing (principal); F10.10 Alcohol abuse, uncomplicated; I95.9 Hypotension, unspecified; I10 Essential (primary) hypertension; J44.9 Chronic obstructive pulmonary disease, unspecified; K21.9 Gastro-esophageal reflux disease without esophagitis; G89.29 Other chronic pain; M54.9 Dorsalgia, unspecified; G40.909 Epilepsy, unspecified, not intractable, without status epilepticus; F41.9 Anxiety disorder, unspecified; F17.210 Nicotine dependence, cigarettes, uncomplicated; F32.A Depression, unspecified; F43.10 Post-traumatic stress disorder, unspecified; D64.9 Anemia, unspecified; I25.2 Old myocardial infarction; Z88.5 Allergy status to narcotic agent; Z79.84 Long term (current) use of oral hypoglycemic drugs; Z79.899 Other long term (current) drug therapy; Z79.82 Long term (current) use of aspirin; Z98.890 Other specified postprocedural states
CPT/HCPCS: 36415; 71045; 74018; 80053; 82947; 83605; 83735; 83880; 84145; 84484; 85025; 85610; 85652; 85730; 86140; 87040; 97161-GP; 97535-GO; A9270-GY; J1644; J1953; J2543; J3370; J3490; J7030; Q3014

== ENCOUNTER 2023-07-21 12:49 | Inpatient (IN) | payer BC ==
[2023-07-21] MEDS: oxyCODONE 5 MG Tab PO PRN ×2 (13:27→19:53)
[2023-07-21] MEDS ORDERED: Polyethylene Glycol 3350 Powder 17 GM Packet PO PRN (14:11)
[2023-07-21] MEDS ORDERED: Albuterol 8 GM Inhaler INH PRN (14:13)
[2023-07-21] MEDS ORDERED: Ondansetron 4 MG Tab.DIS PO PRN (14:13)
[2023-07-21] MEDS ORDERED: Warfarin 5 MG Tab PO SCH (14:15)
[2023-07-21 14:30] LABS: INR 2.7 (0.9-1.1)
[2023-07-21] MEDS: Sucralfate 1 GM Tab PO SCH ×2 (17:11→21:00)
[2023-07-21] MEDS: levETIRAcetam 500 MG Tab PO SCH (20:00)
[2023-07-21] MEDS: Phenytoin 100 MG Cap.ER PO SCH (20:00)
[2023-07-21] MEDS: Vitamin B Complex Tab PO SCH (20:00)
[2023-07-22] MEDS: oxyCODONE 5 MG Tab PO PRN ×3 (03:59→19:31)
[2023-07-22] MEDS: Sucralfate 1 GM Tab PO SCH ×5 (06:08→22:04)
[2023-07-22] MEDS: Levothyroxine 25 MCG Tab PO SCH (06:38)
[2023-07-22] MEDS: Nicotine 7 MG/24 Hr Patch TRDERM SCH ×2 (07:10→08:02)
[2023-07-22] MEDS: Pantoprazole 40 MG Tab.CR PO SCH ×2 (07:10→08:03)
[2023-07-22] MEDS: Phenytoin 100 MG Cap.ER PO SCH ×3 (07:10→20:05)
[2023-07-22] MEDS: Sennosides/Docusate Sodium 50-8.6 MG Tab PO SCH ×2 (07:10→08:03)
[2023-07-22] MEDS: Vitamin B Complex Tab PO SCH ×3 (07:11→20:05)
[2023-07-22] MEDS: busPIRone 10 MG Tab PO SCH ×2 (07:11→08:02)
[2023-07-22] MEDS: metFORMIN 500 MG Tab PO SCH ×2 (07:11→08:02)
[2023-07-22] MEDS: Thiamine 100 MG Tab PO SCH ×2 (07:11→08:03)
[2023-07-22] MEDS: Folic Acid 1 MG Tab PO SCH ×2 (07:11→08:02)
[2023-07-22] MEDS: levETIRAcetam 500 MG Tab PO SCH ×3 (07:12→20:05)
[2023-07-22] MEDS: Escitalopram 10 MG Tab PO SCH ×2 (07:12→08:02)
[2023-07-22] MEDS: Ferrous Sulfate 325 MG Tab PO SCH ×2 (07:12→08:02)
[2023-07-22] MEDS: Lisinopril 20 MG Tab PO SCH ×2 (07:12→08:03)
[2023-07-22 13:25] LABS: INR 3.7 (0.9-1.1)
[2023-07-22] MEDS: Baclofen 10 MG Tab PO PRN (17:36)
[2023-07-22] MEDS: Acetaminophen 325 MG Tab PO PRN (23:30)
[2023-07-23] MEDS: oxyCODONE 5 MG Tab PO PRN ×4 (02:26→22:33)
[2023-07-23] MEDS: Sucralfate 1 GM Tab PO SCH ×6 (05:26→21:29)
[2023-07-23] MEDS: Levothyroxine 25 MCG Tab PO SCH ×2 (06:01→06:37)
[2023-07-23] MEDS: Acetaminophen 325 MG Tab PO PRN ×3 (07:53→19:31)
[2023-07-23] MEDS: Phenytoin 100 MG Cap.ER PO SCH ×3 (08:49→20:01)
[2023-07-23] MEDS: busPIRone 10 MG Tab PO SCH (08:49)
[2023-07-23] MEDS: Escitalopram 10 MG Tab PO SCH (08:50)
[2023-07-23] MEDS: Baclofen 10 MG Tab PO PRN ×2 (08:50→19:31)
[2023-07-23] MEDS: levETIRAcetam 500 MG Tab PO SCH ×3 (08:50→20:01)
[2023-07-23] MEDS: Thiamine 100 MG Tab PO SCH (08:50)
[2023-07-23] MEDS: Sennosides/Docusate Sodium 50-8.6 MG Tab PO SCH (08:50)
[2023-07-23] MEDS: metFORMIN 500 MG Tab PO SCH (08:51)
[2023-07-23] MEDS: Folic Acid 1 MG Tab PO SCH (08:53)
[2023-07-23] MEDS: Pantoprazole 40 MG Tab.CR PO SCH (08:53)
[2023-07-23] MEDS: Vitamin B Complex Tab PO SCH ×3 (08:53→20:02)
[2023-07-23] MEDS: Ferrous Sulfate 325 MG Tab PO SCH (08:53)
[2023-07-23] MEDS: Lisinopril 20 MG Tab PO SCH (08:54)
[2023-07-23] MEDS: Nicotine 7 MG/24 Hr Patch TRDERM SCH (09:00)
[2023-07-23] MEDS ORDERED: Warfarin 2.5 MG Tab PO SCH (18:00)
[2023-07-24] MEDS: Acetaminophen 325 MG Tab PO PRN ×3 (02:19→16:06)
[2023-07-24] MEDS: oxyCODONE 5 MG Tab PO PRN ×3 (04:32→18:58)
[2023-07-24 07:35] LABS: INR 2.2 (0.9-1.1)
[2023-07-24 07:36] LABS: INR 2.4 (0.9-1.1)
[2023-07-24] MEDS: Lisinopril 20 MG Tab PO SCH (09:06)
[2023-07-24] MEDS: Baclofen 10 MG Tab PO PRN ×3 (09:06→20:42)
[2023-07-24] MEDS: Pantoprazole 40 MG Tab.CR PO SCH (09:06)
[2023-07-24] MEDS: Ferrous Sulfate 325 MG Tab PO SCH (09:06)
[2023-07-24] MEDS: Phenytoin 100 MG Cap.ER PO SCH ×2 (09:06→20:42)
[2023-07-24] MEDS: levETIRAcetam 500 MG Tab PO SCH ×2 (09:06→20:42)
[2023-07-24] MEDS: Folic Acid 1 MG Tab PO SCH (09:06)
[2023-07-24] MEDS: Vitamin B Complex Tab PO SCH ×2 (09:06→20:43)
[2023-07-24] MEDS: Escitalopram 10 MG Tab PO SCH (09:07)
[2023-07-24] MEDS: Thiamine 100 MG Tab PO SCH (09:07)
[2023-07-24] MEDS: busPIRone 10 MG Tab PO SCH (09:07)
[2023-07-24] MEDS: Levothyroxine 25 MCG Tab PO SCH (09:07)
[2023-07-24] MEDS: Sucralfate 1 GM Tab PO SCH ×5 (09:07→21:06)
[2023-07-24] MEDS: metFORMIN 500 MG Tab PO SCH (09:08)
[2023-07-24] MEDS: Sennosides/Docusate Sodium 50-8.6 MG Tab PO SCH (09:09)
[2023-07-24] MEDS: Nicotine 7 MG/24 Hr Patch TRDERM SCH (09:09)
[2023-07-24] MEDS ORDERED: Warfarin 2.5 MG Tab PO ONE (18:00)
[2023-07-25] MEDS: Acetaminophen 325 MG Tab PO PRN ×4 (00:23→20:05)
[2023-07-25] MEDS: oxyCODONE 5 MG Tab PO PRN ×3 (04:59→17:38)
[2023-07-25] MEDS: Levothyroxine 25 MCG Tab PO SCH (07:15)
[2023-07-25] MEDS: Sucralfate 1 GM Tab PO SCH ×4 (07:16→21:01)
[2023-07-25 07:49] LABS: INR 2.4 (0.9-1.1)
[2023-07-25] MEDS: Folic Acid 1 MG Tab PO SCH (08:31)
[2023-07-25] MEDS: levETIRAcetam 500 MG Tab PO SCH ×2 (08:31→20:04)
[2023-07-25] MEDS: Baclofen 10 MG Tab PO PRN ×3 (08:31→20:04)
[2023-07-25] MEDS: Thiamine 100 MG Tab PO SCH (08:31)
[2023-07-25] MEDS: Pantoprazole 40 MG Tab.CR PO SCH (08:32)
[2023-07-25] MEDS: Vitamin B Complex Tab PO SCH ×2 (08:32→20:04)
[2023-07-25] MEDS: busPIRone 10 MG Tab PO SCH (08:32)
[2023-07-25] MEDS: Lisinopril 20 MG Tab PO SCH (08:32)
[2023-07-25] MEDS: Escitalopram 10 MG Tab PO SCH (08:32)
[2023-07-25] MEDS: Ferrous Sulfate 325 MG Tab PO SCH (08:32)
[2023-07-25] MEDS: metFORMIN 500 MG Tab PO SCH (08:33)
[2023-07-25] MEDS: Nicotine 7 MG/24 Hr Patch TRDERM SCH (08:34)
[2023-07-25] MEDS: Sennosides/Docusate Sodium 50-8.6 MG Tab PO SCH (08:34)
[2023-07-25] MEDS: Phenytoin 100 MG Cap.ER PO SCH ×2 (08:53→20:04)
[2023-07-25] MEDS ORDERED: Warfarin 2.5 MG Tab PO ONE (18:00)
[2023-07-26] MEDS: oxyCODONE 5 MG Tab PO PRN ×3 (00:19→17:53)
[2023-07-26] MEDS: Acetaminophen 325 MG Tab PO PRN ×3 (04:31→21:08)
[2023-07-26] MEDS: Sucralfate 1 GM Tab PO SCH ×4 (05:45→21:08)
[2023-07-26] MEDS: Levothyroxine 25 MCG Tab PO SCH ×2 (06:16→06:37)
[2023-07-26 08:10] LABS: INR 1.8 (0.9-1.1)
[2023-07-26] MEDS: levETIRAcetam 500 MG Tab PO SCH ×2 (09:28→21:07)
[2023-07-26] MEDS: Sennosides/Docusate Sodium 50-8.6 MG Tab PO SCH (09:28)
[2023-07-26] MEDS: Phenytoin 100 MG Cap.ER PO SCH ×2 (09:28→21:07)
[2023-07-26] MEDS: metFORMIN 500 MG Tab PO SCH (09:29)
[2023-07-26] MEDS: Escitalopram 10 MG Tab PO SCH (09:29)
[2023-07-26] MEDS: Baclofen 10 MG Tab PO PRN ×3 (09:30→21:08)
[2023-07-26] MEDS: Vitamin B Complex Tab PO SCH ×2 (09:30→21:08)
[2023-07-26] MEDS: Folic Acid 1 MG Tab PO SCH (09:30)
[2023-07-26] MEDS: Pantoprazole 40 MG Tab.CR PO SCH (09:30)
[2023-07-26] MEDS: busPIRone 10 MG Tab PO SCH (09:30)
[2023-07-26] MEDS: Ferrous Sulfate 325 MG Tab PO SCH (09:31)
[2023-07-26] MEDS: Thiamine 100 MG Tab PO SCH (09:31)
[2023-07-26] MEDS: Lisinopril 20 MG Tab PO SCH (09:31)
[2023-07-26] MEDS: Nicotine 7 MG/24 Hr Patch TRDERM SCH (09:53)
[2023-07-26] MEDS ORDERED: Warfarin 2 MG Tab PO ONE (18:00)
[2023-07-26] MEDS ORDERED: Simethicone 80 MG Tab.Chew PO PRN (18:34)
[2023-07-27] MEDS: oxyCODONE 5 MG Tab PO PRN ×2 (02:32→10:54)
[2023-07-27] MEDS: Acetaminophen 325 MG Tab PO PRN ×2 (04:59→14:04)
[2023-07-27] MEDS: Sucralfate 1 GM Tab PO SCH ×3 (06:37→17:07)
[2023-07-27] MEDS: Levothyroxine 25 MCG Tab PO SCH (06:37)
[2023-07-27 07:06] LABS: INR 2.1 (0.9-1.1)
[2023-07-27 07:33] VITALS: PULSE 73
[2023-07-27] MEDS: Thiamine 100 MG Tab PO SCH (08:45)
[2023-07-27] MEDS: Phenytoin 100 MG Cap.ER PO SCH (08:45)
[2023-07-27] MEDS: Sennosides/Docusate Sodium 50-8.6 MG Tab PO SCH (08:45)
[2023-07-27] MEDS: Escitalopram 10 MG Tab PO SCH (08:46)
[2023-07-27] MEDS: metFORMIN 500 MG Tab PO SCH (08:46)
[2023-07-27] MEDS: Lisinopril 20 MG Tab PO SCH (08:46)
[2023-07-27] MEDS: busPIRone 10 MG Tab PO SCH (08:46)
[2023-07-27] MEDS: Pantoprazole 40 MG Tab.CR PO SCH (08:46)
[2023-07-27] MEDS: Vitamin B Complex Tab PO SCH (08:46)
[2023-07-27] MEDS: levETIRAcetam 500 MG Tab PO SCH (08:46)
[2023-07-27] MEDS: Ferrous Sulfate 325 MG Tab PO SCH (08:47)
[2023-07-27] MEDS: Folic Acid 1 MG Tab PO SCH (08:47)
[2023-07-27] MEDS: Nicotine 7 MG/24 Hr Patch TRDERM SCH (08:59)
[2023-07-27 17:35] VITALS: BP 128/70
[2023-07-27] MEDS ORDERED: Warfarin 2.5 MG Tab PO ONE (18:00)
== END 2023-07-27 17:28 | disposition home or self-care (01) | DRG 861 ==
LOC: UNDOADMIN 12:49 → KA.MS 12:49
PROVIDERS: ADMIT Internal Medicine; ATTEND Internal Medicine
DX: R53.81 Other malaise (principal); F10.20 Alcohol dependence, uncomplicated; J42 Unspecified chronic bronchitis; S72.142D Displaced intertrochanteric fracture of left femur, subsequent encounter for closed fracture with routine healing; I10 Essential (primary) hypertension; F17.210 Nicotine dependence, cigarettes, uncomplicated; I95.9 Hypotension, unspecified; G40.909 Epilepsy, unspecified, not intractable, without status epilepticus; K21.9 Gastro-esophageal reflux disease without esophagitis; G89.29 Other chronic pain; M54.9 Dorsalgia, unspecified; F41.9 Anxiety disorder, unspecified; F32.A Depression, unspecified; F43.10 Post-traumatic stress disorder, unspecified; F10.10 Alcohol abuse, uncomplicated; D64.9 Anemia, unspecified; Z79.84 Long term (current) use of oral hypoglycemic drugs; Z79.82 Long term (current) use of aspirin; Z79.890 Hormone replacement therapy; Z79.01 Long term (current) use of anticoagulants; Z86.711 Personal history of pulmonary embolism; Z86.718 Personal history of other venous thrombosis and embolism; Z79.899 Other long term (current) drug therapy; Z88.5 Allergy status to narcotic agent; I25.2 Old myocardial infarction; Z98.890 Other specified postprocedural states
CPT/HCPCS: 36415; 36416; 85610; 97110-GP; 97161-GP; A9270-GY; Q3014

== ENCOUNTER 2023-10-04 02:45 | Emergency (ER) | payer BC ==
[2023-10-04] MEDS: Sodium Chloride 0.9% 1,000 ML IV ONE ×4 (03:30→07:05)
[2023-10-04 03:36] LABS: BASOPHILS ABSOLUTE AUTO 0.03 10^3/uL (0.00-0.10); BASOPHILS PERCENT AUTO 0.5 % (0.0-1.0); EOSINOPHILS ABSOLUTE AUTO 0.01 10^3/uL (0.10-0.30); EOSINOPHILS PERCENT AUTO 0.2 % (1.0-3.0); HEMATOCRIT 28.2 % (40.0-52.0); HEMOGLOBIN 9.1 g/dL (13.0-17.0); IMMATURE GRAN ABSOLUTE AUTO 0.03 10^3/uL (0.00-0.50); IMMATURE GRAN PERCENT AUTO 0.5 % (0.0-5.0); LYMPHOCYTES ABSOLUTE AUTO 0.84 10^3/uL (1.00-4.00); LYMPHOCYTES PERCENT AUTO 14.3 % (20.0-40.0); MEAN CORPUSCULAR HEMOGLOBIN 33.3 pg (27.0-31.0); MEAN CORPUSCULAR HGB CONC 32.3 g/dL (32.0-36.0); MEAN CORPUSCULAR VOLUME 103.3 fL (82.0-92.0); MEAN PLATELET VOLUME 8.4 fL (7.4-10.4); MONOCYTES ABSOLUTE AUTO 0.61 10^3/uL (0.10-0.80); MONOCYTES PERCENT AUTO 10.4 % (2.0-8.0); NEUTROPHILS ABSOLUTE AUTO 4.34 10^3/uL (2.50-7.00); NEUTROPHILS PERCENT AUTO 74.1 % (50.0-70.0); PLATELET COUNT,PLT 301 10^3/uL (150-400); RED BLOOD CELL COUNT 2.73 10^6/uL (4.50-6.00); RED CELL DISTRIBUTION WIDTH 14.8 % (11.5-14.5); WHITE BLOOD CELL COUNT,WBC 5.86 10^3/uL (5.00-10.00)
[2023-10-04 03:53] LABS: ALANINE AMINOTRANSFERASE,ALT 25 U/L (14-63); ALBUMIN 3.48 g/dL (3.40-5.00); ALKALINE PHOSPHATASE 129 U/L (46-116); ANION GAP 30.6 mmol/L (5-15); ASPARTATE AMNIOTRANSFERASE,AST 64 U/L (15-37); BILIRUBIN TOTAL 0.6 mg/dL (0.2-1.0); BLOOD UREA NITROGEN,BUN 24 mg/dL (7-18); CALCIUM 8.2 mg/dL (8.7-10.3); CHLORIDE,CL 91 mmol/L (98-107); CREATININE 1.04 mg/dL (0.51-1.17); ESTIMATED GFR 82 mL/min (>=60); ETHANOL BLOOD MEDICAL < 3 mg/dL (NOT DETECTED); GLUCOSE RANDOM 82 mg/dL (70-140); POTASSIUM,K 5.6 mmol/L (3.5-5.1); PROTEIN TOTAL,TP 6.1 g/dL (6.4-8.2); SODIUM,NA 133 mmol/L (136-145)
[2023-10-04 04:23] LABS: INR 6.8 (0.9-1.1)
[2023-10-04] MEDS: SODIUM CHLORIDE 0.9% IV ONE (04:36)
[2023-10-04] MEDS: PHYTONADIONE IV ONE (04:36)
[2023-10-04] MEDS: Ondansetron 4 MG/2 ML SDV IVPUSH ONE (04:46)
[2023-10-04] MEDS ORDERED: Norepinephrine Bit/D5W Premix 250 ML IV SCH (05:30)
[2023-10-04] MEDS: Pantoprazole 40 MG Vial IVPUSH ONE (05:36)
[2023-10-04] MEDS: Thiamine 200 MG/2 ML MDV IVPUSH ONE (05:59)
[2023-10-04] MEDS: Sodium Chloride 0.9% 1,000 ML ONE (06:16)
[2023-10-04 07:09] VITALS: BP 46/22; PULSE 58
== END 2023-10-04 06:47 | disposition expired ==
LOC: KA.ED 02:45
DX: K92.0 Hematemesis (principal); E86.1 Hypovolemia; D64.9 Anemia, unspecified; R79.89 Other specified abnormal findings of blood chemistry; I10 Essential (primary) hypertension; I25.2 Old myocardial infarction; J44.9 Chronic obstructive pulmonary disease, unspecified; Z88.8 Allergy status to other drugs, medicaments and biological substances; Z79.01 Long term (current) use of anticoagulants; Z79.84 Long term (current) use of oral hypoglycemic drugs; Z79.899 Other long term (current) drug therapy; Z86.16 Personal history of COVID-19
CPT/HCPCS: 36415; 70450; 71045; 80053; 80307; 85025; 85610; 96361; 96365; 96367; 96375; 99284; 99285-25; C9113; J2405; J3411; J3430; J3490; J7030